=== PATIENT | female | born 1950 | race African-American/Black ===

== ENCOUNTER 2022-03-04 12:09 | Emergency (ER) | payer OTHER ==
[~2022-03-04] VITALS: Ht 167.6 cm; Wt 90.0 kg
[2022-03-04] MEDS ORDERED: DexAMETHasone SOD PHOS 10MG/1ML VIAL INJ IV ONE (14:00)
[2022-03-04] MEDS ORDERED: FAMOTIDINE (10MG/ML) 2ML VL IV ONE (14:00)
[2022-03-04] MEDS ORDERED: diphenhdrAMINE HCL 50 MG/1 ML VL IV ONE (14:00)
[2022-03-04 14:39] LABS: Basophils # (auto) 0 10 ^3/uL (0-0.2); Basophils % (auto) 0.2 % (0.0-2.0); Eosinophils # (auto) 0.4 10 ^3/uL (0-0.8); Eosinophils % (auto) 5.4 % (0.0-7.0); Hematocrit 47.8 % (36.0-46.0); Hemoglobin 16.1 g/dL (12.2-16.2); Lymphocytes # (auto) 1.5 10 ^3/uL (0.4-5.4); Mean Corpuscular Hemoglobin 31.8 pg (28.0-32.0); Mean Corpuscular Hgb Conc. 33.6 g/dL (32.0-36.0); Mean Corpuscular Volume 94.5 fL (80.0-100.0); Monocytes # (auto) 0.6 10 ^3/uL (0-1.3); Monocytes % (auto) 8.5 % (0.0-12.0); Neutrophils # (auto) 4.6 10 ^3/uL (1.6-8.6); Neutrophils % (auto) 64.9 % (37.0-80.0); Nucleated Red Blood Cells % 0.4 %; Red Blood Cells 5.06 10^6/uL (4.0-5.20); Red Cell Distribution Width 13.9 % (11.8-14.3)
[2022-03-04 15:21] LABS: BUN/Creatinine Ratio 25.8; Bilirubin, Total 0.3 mg/dL (0.2-1.0); Calcium 8.8 mg/dL (8.5-10.1); Potassium 3.7 mmol/L (3.5-5.1); Total Protein 6.9 g/dL (6.4-8.2)
[2022-03-04 20:44] VITALS: BP 98/66
== END 2022-03-04 20:42 | disposition home or self-care (01) ==
LOC: EDBD 12:09 → ER 12:12
DX: T78.3XXA Angioneurotic edema, initial encounter (principal); Z88.0 Allergy status to penicillin
CPT/HCPCS: 36415; 80053; 85025

== ENCOUNTER 2024-02-18 00:49 | Emergency (ER) | payer OTHER, MEDICAID ==
[~2024-02-18] VITALS: Ht 172.7 cm; Wt 113.4 kg
--- NOTE | 2024-02-18 01:28 | ED.PDOC ---
History of Present Illness HPI Comments 73 y/o F, with a Hx of AFIB, CHF, CVA w/left-sided deficits, HTN, morbid obesity, and seizures, is BIBA for c/o productive cough, today. Per EMS report, patient endorses on unprovoked onset of cough w/beige phlegm production for 1 week that has been progressively worsening since. On scene, EMS staff states on patient having clear lung sounds and all her vitals being stable and within normal limits, with exception of being found in AFIB. EMS informs on patient's family reporting on only giving the patient her Lasix and Keppra medication, with no additional prescription medication for her other comorbidities. Patient, at time of assessment, is a poor historian and is unable to provide further context regarding her medications she takes or symptoms, with exception of denying any chest pain, shortness of breath, hemoptysis, fever, chills, or other associated symptoms or modifiers at this time. Chief Complaint: Cough Time Seen by MD: 01:15 Primary Care Provider: UNKNOWN Reviewed Notes: Nurses Notes, Corporation Officer Notes, Medications, Allergies Allergies: Coded Allergies: Penicillins (Verified Allergy, Severe, 03/04/22) Shellfish Allergy (Verified Allergy, Unknown, 02/18/24) Information Source: Patient, Emergency Med Personnel Mode of Arrival: EMS Severity: Moderate Timing: Weeks Duration: Since onset Prehospital treatment: 12 Lead EKG, Custom Bookbinder Past Medical History PAST MEDICAL HISTORY: AFIB (w/Lasix use ), CHF, CVA (w/left-sided deficits ), HTN, Seizures (w/Keppra use, last seizure reported 2 years ago ) Past Medical History (Other): morbid obesity Surgical History: Denies all surgeries DISTANCE LEARNING TECHNICIAN History: Denies all DISTANCE LEARNING TECHNICIAN Hx, Unknown Family History Family History: Unknown Social History Smoker: Non-Smoker Alcohol: Denies ETOH Use Drugs: Denies Drug Use Lives In: Home, Assisted Care Constitutional: denies: chills, diaphoresis, fatigue, fever, malaise, sweats, weakness, others EENTM: denies: blurred vision, double vision, ear bleeding, ear discharge, ear drainage, ear pain, ear ringing, eye pain, eye redness, hearing loss, mouth pain, mouth swelling, nasal discharge, nose bleeding, nose congestion, nose pain, photophobia, tearing, throat pain, throat swelling, voice changes, others Respiratory: reports: cough; denies: hemoptysis, orthopnea, SOB at rest, shortn ess of breath, SOB with excertion, stridor, wheezing, others Cardiovascular: denies: chest pain, dizzy spells, diaphoresis, Dyspnea on exertion, edema, irregular heart beat, left arm pain, lightheadedness, palpitations, PND, syncope, others Gastrointestinal: denies: abdomen distended, abdominal pain, blood streaked bowels, constipated, diarrhea, dysphagia, difficulty swallowing, hematemesis, melena, nausea, poor appetite, poor fluid intake, rectal bleeding, rectal pain, vomiting, others Genitourinary: denies: abnormal vagina bleeding, burning, dyspareunia, dysuria, flank pain, frequency, hematuria, incontinence, pain, , vagina discharge, urgency, others Neurological: denies: dizziness, fainting, headache, left sided numbness, left sided weakness, numbness, paresthesia, pre-existing deficit, right sided numbness, right sided weakness, seizure, speech problems, tingling, tremors, weakness, others Musculoskeletal: denies: back pain, gout, joint pain, joint swelling, muscle pain, muscle stiffness, neck pain, others Integumetry: denies: bruises, change in color, change in hair/nails, dryness, laceration, lesions, lumps, rash, wounds, others Allergic/Immunocompromised: denies: Difficulty Healing, Frequent Infections, Hives, Itching, others Hematologic/Lymphatic: denies: anemia, blood clots, easy bleeding, easy bruising, swollen glands, others Endocrine: denies: excessive hunger, excessive sweating, excessive thirst, excessive urination, flushing, intolerance to cold, intolerance to heat, unexplained weight gain, unexplained weight loss, others Psychiatric: denies: anxiety, bipolar disorder, depression, hopeless, panic disorder, schizophrenia, sleepless, suicidal, others All Other Systems: Reviewed and Negative Physical Exam General Appearance: Moderate Distress, Obese HEENT: Normal ENT Inspection, Pharynx Normal, TMs Normal Neck: Full Range of Motion, Non-Tender, Normal, Normal Inspection Respiratory: Chest Non-Tender, Decreased Breath Sounds (diminished), No Accessory Muscle Use Cardiovascular: No Edema, No JVD, No Murmur, No Gallop, Normal Peripheral Pulses, Regular Rate/Rhythm Breast Exam: Deferred Gastrointestinal: No Organomegaly, Non Tender, No Pulsatile Mass, Normal Bowel Sounds, Soft Genitalia: Deferred Pelvic: Deferred Rectal: Deferred Extremities: No calf tenderness, Normal capillary refill, Normal inspection, Normal range of motion, Non-tender, No pedal edema Musculoskeletal : Apperance: Normal Neurologic: Alert, research assistant professor II-XII nml as Tested, Normal Affect, Normal Mood, Other (left-sided deficits) Cerebellar Function: Normal Reflexes: Normal Skin: Dry, Normal Color, Warm Lymphatic: No Adenopathy Was a procedure done? Was a procedure done?: No EKG EKG : Pulse Rate (adult): 138 [place]lick: Normal Cardiac Rhythm: Afib (RVR) Block: None Hypertrophy: None ST: Normal Differential Dx Considerations may include: PNA, pleural effusions, Covdi19, bronchitis, URI X-Ray, Labs, Meds, VS Vital Signs Date Time Temp Pulse Resp B/P (MAP) Pulse Ox O2 Delivery O2 Flow Rate FiO2 02/18/24 02:34 20 97 Room Air* 0 21 02/18/24 01:54 144 19 Room Air* 0 21 02/18/24 01:54 97.9 144 19 145/105 (118) 97.9 02/18/24 01:28 138 02/18/24 01:06 138 02/18/24 01:04 98.9 120 16 118/91 (100) 100 Lab Test 02/18/24 03:47 02/18/24 03:38 02/18/24 02:33 02/18/24 01:48 Range/Units Prothrombin Time Pending Prothrombin Time INR Pending Activated Partial Thromboplast Time Pending Sodium Level Pending Potassium Level Pending Chloride Level Pending Carbon Dioxide Level Pending Anion Gap Pending Blood Urea Nitrogen Pending Creatinine Pending Glomerular Filtration Rate Calc Pending BUN/Creatinine Ratio Pending Serum Glucose Pending Calcium Level Pending Total Bilirubin Pending Aspartate Amino Transferase (AST) Pending Alanine Aminotransferase (ALT) Pending Alkaline Phosphatase Pending Troponin I High Sensitivity Pending 28 36 *H </=34 ng/L Total Protein Pending Albumin Pending Influenza Type A Antigen Negative Negative Influenza Type B Antigen Negative Negative SARS-CoV-2 Antigen (Rapid) Negative NEGATIVE White Blood Count 8.7 4.4-10.8 10^3/uL Red Blood Count 4.03 4.0-5.20 10^6/uL Hemoglobin 12.2 12.2-16.2 g/dL Hematocrit 37.5 36.0-46.0 % Mean Corpuscular Volume 93.1 80.0-100.0 fL Mean Corpuscular Hemoglobin 30.2 28.0-32.0 pg Mean Corpuscular Hemoglobin Concent 32.4 32.0-36.0 g/dL Red Cell Distribution Width 14.0 11.8-14.3 % Platelet Count 168 140-450 10^3/uL Mean Platelet Volume 10.0 6.9-10.8 fL Neutrophils (%) (Auto) 71.9 37.0-80.0 % Lymphocytes (%) (Auto) 18.5 10.0-50.0 % Monocytes (%) (Auto) 2.6 0.0-12.0 % Eosinophils (%) (Auto) 5.7 0.0-7.0 % Basophils (%) (Auto) 1.3 0.0-2.0 % Neutrophils # (Auto) 6.2 1.6-8.6 10 ^3/uL Lymphocytes # (Auto) 1.6 0.4-5.4 10 ^3/uL Monocytes # (Auto) 0.2 0-1.3 10 ^3/uL Eosinophils # (Auto) 0.5 0-0.8 10 ^3/uL Basophils # (Auto) 0.1 0-0.2 10 ^3/uL Nucleated Red Blood Cells 0.3 % B-Type Natriuretic Peptide 90.82 0-100 pg/mL Current Medications Medications (Trade) Dose Ordered Sig/Mahad Route Start Time Stop Time Status Last Admin Diltiazem HCl (Cardizem Injection) 10 mg ONCE ONCE IV 02/18/24 01:30 02/18/24 01:31 DC 02/18/24 01:30 Levofloxacin/ Dextrose 100 ml @ 100 mls/hr ONCE ONCE IV 02/18/24 01:30 02/18/24 02:29 DC 02/18/24 01:30 Levalbuterol HCl (Xopenex Medneb) 0.625 mg ONCE ONCE NEB 02/18/24 02:30 02/18/24 02:31 DC 02/18/24 02:34 [facility] [id number] [place] [address] Ph: [phone] DIAGNOSTIC IMAGING Diagnostic Imaging Report : [id number] Signed PATIENT: LORENA ECKERT ACCT: [id number] UNIT: [id number] : 1950 LOC: ER ROOM / BED: / AGE / SEX: 73 / F ADM STATUS: REG ER SERVICE 9 ORDERING PHYSICIAN: KAYLIE MOORE MD PROCEDURE(s): CXRP - CHEST PORTABLE REASON: cough ORDER NUMBER(s): [id number], ACCESSION NUMBER(s): [id number] Examination: CXRP Clinical Indication:cough DIREAS;Reason for Exam: ;P DITRANS;How is patient transported? Comparison: None. Technique: Frontal radiograph of the chest was obtained. Findings: Patient is in slight rotation. Mild cardiomegaly, with central pulmonary venous congestion in both lungs. Inhomogeneous radiopacities in the right lower lung suggestive of patchy conso lidation. No pleural effusion on either side in current study. There is no pneumothorax. Aortic knob calcification noted. No acute osseous abnormality is seen. Impression: 1. Mild cardiomegaly, with central pulmonary venous congestion in both lungs. 2. Patchy consolidation in right lower lung. Electronically Signed 02/18/2024 02:59 Julien Guardado ATED BY: GEO BUTTERFIELD MD DICTATED DATE/TIME: 02/18/24258 SIGNED BY: GEO BUTTERFIELD MD SIGNED DATE/TIME: 02/18/24258 CC: Troponin is pending. EKG reveals atrial fibrillation. Chest x-ray shows cardiomegaly with pulmonary venous congestion in right lower lobe consolidation. COVID and influenza a and B are negative. However RSV is pending The rest of her labs are pending. The patient was given Lasix for pulmonary congestion. She was given Levaquin for pneumonia. She was given diltiazem for atrial fibrillation. The patient will be admitted to the hospitalist for further evaluation and care. Time of 1ST Reevaluation: 01:45 Reevaluation 1ST: Unchanged Patient Education/Counseling: Diagnosis, Treatment Family Education/Counseling: No Family Present Departure 1 Departure Time of Disposition: 04:33 Impression: Primary Impression: Cardiomegaly Additional Impressions: Pulmonary congestion Pneumonia Qualified Codes: J18.9 - Pneumonia, unspecified organism Atrial fibrillation Qualified Codes: I48.91 - Unspecified atrial fibrillation Disposition: ADMITTED INPATIENT Admit to: Tele Condition: Guarded Critical Care Note Critical Care Time?: Yes (35 min-critical care time only) Stability Stability form required: No Heart Score Heart Score: Heart Score Response (Comments) Value History Slightly Suspicious 0 EKG Repolarization Disturb 1 Age >65 2 Risk Factors >3 or Hx ASHD 2 Troponin N/A 0 Total 5 I personally scribed for KAYLIE MOORE MD ([email or web address]) on 02/18/24 at 01:28. Electronically submitted by Abhinav Anthony ([email or web address]). I personally scribed for KAYLIE MOORE MD ([email or web address]) on 02/18/24 at 01:29. Electronically submitted by Abhinav Anthony ([email or web address]). KAYLIE MOORE MD Feb 18, 2024 01:28
[2024-02-18] MEDS: ACETAMINOPHEN/CODEINE#3 (300/30mg) TAB PO ONE (01:30)
[2024-02-18] MEDS: dilTIAZem 25 MG/5 ML VIAL IV ONE ×3 (01:30→09:30)
[2024-02-18] MEDS: levoFLOXacin 500MG 100 ML IV ONE (01:30)
[2024-02-18 01:54] VITALS: PULSE 144; RESP 19
[2024-02-18] MEDS: LEVALBUTEROL HCL 1.25 MG/3 ML NEB NEB ONE (02:34)
[2024-02-18 03:00] LABS: Basophils # (auto) 0.1 10 ^3/uL (0-0.2); Basophils % (auto) 1.3 % (0.0-2.0); Eosinophils # (auto) 0.5 10 ^3/uL (0-0.8); Eosinophils % (auto) 5.7 % (0.0-7.0); Hematocrit 37.5 % (36.0-46.0); Hemoglobin 12.2 g/dL (12.2-16.2); Lymphocytes # (auto) 1.6 10 ^3/uL (0.4-5.4); Lymphocytes % (auto) 18.5 % (10.0-50.0); Mean Corpuscular Hemoglobin 30.2 pg (28.0-32.0); Mean Corpuscular Hgb Conc. 32.4 g/dL (32.0-36.0); Mean Corpuscular Volume 93.1 fL (80.0-100.0); Monocytes # (auto) 0.2 10 ^3/uL (0-1.3); Monocytes % (auto) 2.6 % (0.0-12.0); Neutrophils # (auto) 6.2 10 ^3/uL (1.6-8.6); Neutrophils % (auto) 71.9 % (37.0-80.0); Nucleated Red Blood Cells % 0.3 %; Platelet Count (auto) 168 10^3/uL (140-450); Red Blood Cells 4.03 10^6/uL (4.0-5.20); White Blood Cell 8.7 10^3/uL (4.4-10.8)
--- NOTE | 2024-02-18 03:00 | DVH ---
Examination: CXRP Clinical Indication:cough DIREAS;Reason for Exam: ;P DITRANS;How is patient transported? Comparison: None. Technique: Frontal radiograph of the chest was obtained. Findings: Patient is in slight rotation. Mild cardiomegaly, with central pulmonary venous congestion in both lungs. Inhomogeneous radiopacities in the right lower lung suggestive of patchy consolidation. No pleural effusion on either side in current study. There is no pneumothorax. Aortic knob calcification noted. No acute osseous abnormality is seen. Impression: 1. Mild cardiomegaly, with central pulmonary venous congestion in both lungs. 2. Patchy consolidation in right lower lung. Electronically Signed 02/18/2024 02:59 Julien Guardado
[2024-02-18 04:19] LABS: COVID19 ANTIGEN SOFIA FIA NEGATIVE (NEGATIVE); Rapid Influenza A Negative (Negative); Rapid Influenza B Negative (Negative)
[2024-02-18 04:28] LABS: Alanine Aminotransferase 15 U/L (7-40); Albumin 3.9 g/dL (3.2-4.8); Alkaline Phosphatase 137 U/L (46-116); Anion Gap 10 (5-15); Aspartate Aminotransferase 31 U/L (13-40); BUN/Creatinine Ratio 15.5 (10.0-20.0); Bilirubin, Total 0.6 mg/dL (0.2-1.0); Blood Urea Nitrogen 11 mg/dL (9-23); Calcium 9.5 mg/dL (8.7-10.4); Carbon Dioxide 24 mmol/L (20-31); Chloride 107 mmol/L (98-107); Glucose 111 mg/dL (74-106); Potassium 4.4 mmol/L (3.5-5.1); Sodium 141 mmol/L (136-145); Total Protein 6.8 g/dL (5.7-8.2)
[2024-02-18 04:48] LABS: INR 1.03 (0.9-1.15); Partial Thromboplastin Time 26.3 SEC (24.5-34.5); Prothrombin Time 10.9 sec (9.3-11.8)
[2024-02-18] MEDS ORDERED: LEVALBUTEROL HCL 1.25 MG/3 ML NEB NEB SCH (06:00)
--- NOTE | 2024-02-18 06:21 | ECG ---
[facility] Test Date: 2024-02-18 Test Time: 01:06:43 Pat Name: LORENA ECKERT Department: ED Room: Gender: F Vp & General Counsel: SANJAY : 1950 Requested By: EMERGENCY EMERGENCY Order Number: [id number] Reading MD: Ge Lepe Measurements Intervals [place] Rate: 138 P: 0 ND: 0 QRS: 42 QRSD: 97 T: 29 QT: 319 QTc: 484 Interpretive Statements Atrial fibrillation Paired ventricular premature complexes Artifact in lead(s) aVL,aVF,V1,V2,V3,V4,V5,V6 and baseline wander in lead(s) V2 Electronically Signed On 02-18-2024 8:28:54 PST by Ge Lepe Please click the below link to view image of tracing.
--- NOTE | 2024-02-18 06:42 | ED.PDOC ---
Departure 1 Departure Time of Disposition: 06:41 ([facility] Authorization for transfer [id number] with Pneumonia c/b afib with rvr. Patient is stable for als transfer.) Impression: Primary Impression: Cardiomegaly Additional Impressions: Pulmonary congestion Atrial fibrillation Qualified Codes: I48.91 - Unspecified atrial fibrillation Pneumonia Qualified Codes: J18.9 - Pneumonia, unspecified organism Disposition: 02 SHORT TERM HOSPITAL Admit to: Tele Condition: Guarded LIANA OROZCO MD Feb 18, 2024 06:42
[2024-02-18] MEDS: CARVEDILOL 3.125 MG TAB PO ONE (06:56)
[2024-02-18] MEDS: AZITHROMYCIN 250 MG TAB PO ONE (06:58)
[2024-02-18 08:37] VITALS: PULSE 131; RESP 12; O2SAT 97
[2024-02-18 10:05] VITALS: BP 157/92; PULSE 89; RESP 14; TEMP 97.1; O2SAT 95
== END 2024-02-18 10:12 | disposition short-term general hospital (02) ==
LOC: EDBD 00:49 → ER 00:49
DX: J18.9 Pneumonia, unspecified organism (principal); I11.0 Hypertensive heart disease with heart failure; R09.89 Other specified symptoms and signs involving the circulatory and respiratory systems; I48.91 Unspecified atrial fibrillation; Z88.0 Allergy status to penicillin
CPT/HCPCS: 36415; 71045; 80053; 83880; 84484; 85025; 85610; 85730; 87426; 87804; 93005; 94640; 96365; 96375; 96376; 99291; J1956

== ENCOUNTER 2024-03-31 03:07 | Emergency (ER) | payer OTHER, MEDICAID ==
[~2024-03-31] VITALS: Ht 167.6 cm; Wt 130.0 kg
--- NOTE | 2024-03-31 03:37 | ED.PDOC ---
History of Present Illness HPI Comments 73 y/o F, Hx of AFIB, CHF, CVA, HTN, and seizures, is BIBA for c/o ALOC, today. Per EMS report, patient's family called, due to patient acting unusual from her baseline since 1999, last night. Her altered stated was commented to have been characterized by the patient being confused and rambling between different un- related topics. Prior, she patient was reported to have had suffered a recent "stroke" that resulted in slow speech deficits on 03/25/24. On scene, EMS noted patient being A&Ox1 to name, warm to touch, with a temperature of 99.8F, peripheral edema, and in AFIB at a rate within the 120-140 range. All other remaining vitals were stated to have been within normal limits. At time of assessment, patient has no further additional relevant or pertinent Hx or associated symptoms or modifiers at this time. Further Hx cannot be obtained at time of assessment, due to patient's altered state and absence of family/caretakers. Time Seen by MD: 03:20 Primary Care Provider: UNKNOWN Reviewed Notes: Nurses Notes, Mechanical Press Operator Notes, Medications, Allergies Allergies: Coded Allergies: Penicillins (Verified Allergy, Severe, 03/04/22) Shellfish Allergy (Verified Allergy, Unknown, 02/18/24) Information Source: Emergency Med Personnel Mode of Arrival: EMS Severity: Moderate Timing: Hours Duration: Since onset Prehospital treatment: 12 Lead EKG, Accucheck, Corporate Compliance Officer Past Medical History PAST MEDICAL HISTORY: AFIB, CHF, CVA, HTN, Seizures Surgical History: Denies all surgeries PHARMACEUTICAL DEVELOPMENT TECHNICIAN History: Denies all PHARMACEUTICAL DEVELOPMENT TECHNICIAN Hx, Unknown Family History Family History: Unknown Social History Smoker: Non-Smoker Alcohol: Denies ETOH Use Drugs: Denies Drug Use Lives In: Home, Assisted Care Neurological: reports: others (ALOC) All Other Systems: Reviewed and Negative (negative unless otherwise stated above or in HPI) Physical Exam General Appearance: Normal, Severe Distress, Other (non-verbal ) HEENT: Normal ENT Inspection, Pharynx Normal, TMs Normal Neck: Full Range of Motion, Non-Tender, Normal, Normal Inspection Respiratory: Chest Non-Tender, Lungs Clear, No Accessory Muscle Use, No Respiratory Distress, Normal Breath Sounds Cardiovascular: No Edema, No JVD, No Murmur, No Gallop, Normal Peripheral Pulses, Regular Rate/Rhythm Breast Exam: Deferred Gastrointestinal: No Organomegaly, Non Tender, No Pulsatile Mass, Normal Bowel Sounds, Soft Genitalia: Deferred Pelvic: Deferred Rectal: Deferred Extremities: No calf tenderness, Normal capillary refill, Normal inspection, Normal range of motion, Non-tender, No pedal edema Musculoskeletal : Apperance: Normal Neurologic: Alert, measurement technician II-XII nml as Tested, No Motor Deficits, Normal Affect, Normal Mood, No Sensory Deficits Cerebellar Function: Normal Reflexes: Normal Skin: Dry, Normal Color, Warm Lymphatic: No Adenopathy Was a procedure done? Was a procedure done?: No EKG EKG : Pulse Rate (adult): 115 [place]: Normal Cardiac Rhythm: Afib Block: None Hypertrophy: None ST: Normal Differential Dx Considerations may include: Electrolyte imbalance, encephalopathy, idiopathic, dementia, CVA, TIA X-Ray, Labs, Meds, VS Vital Signs Date Time Temp Pulse Resp B/P (MAP) Pulse Ox O2 Delivery O2 Flow Rate FiO2 03/31/24 03:37 115 03/31/24 03:21 99.8 120 24 121/99 (106) 99 03/31/24 03:10 [address] [place] [address] Ph: [phone] DIAGNOSTIC IMAGING Diagnostic Imaging Report : [id number] Signed PATIENT: LORENA ECKERT ACCT: [id number] UNIT: [id number] : 1950 LOC: ER ROOM / BED: / AGE / SEX: 73 / F ADM STATUS: REG ER SERVICE 0322 ORDERING PHYSICIAN: KAYLIE MOORE MD PROCEDURE(s): CXRP - CHEST PORTABLE REASON: aloc ORDER NUMBER(s): [id number], ACCESSION NUMBER(s): [id number] CHEST RADIOGRAPH Indication: aloc Technique: Single frontal view of the chest was obtained COMPARISON: XY CHEST PORTABLE on DOS: 02/18/24 FINDINGS: Lines and Tubes: None Lungs: Congestion Pleura: No effusion. No pneumothorax. Cardiomediastinal contours: Cardiomegaly Bones: Unremarkable IMPRESSION: Pulmonary vascular congestion versus viral pneumonitis. ATED BY: JANI VILLALBA MD DICTATED DATE/TIME: 03/31/24514 SIGNED BY: JANI VILLALBA MD SIGNED DATE/TIME: 03/31/24514 CC: Labs are pending. [address] [place] [address] Ph: [phone] DIAGNOSTIC IMAGING Diagnostic Imaging Report : [id number] Signed PATIENT: LORENA ECKERT ACCT: [id number] UNIT: [id number] : 1950 LOC: ER ROOM / BED: / AGE / SEX: 73 / F ADM STATUS: REG ER SERVICE 1 ORDERING PHYSICIAN: KAYLIE MOORE MD PROCEDURE(s): HWOCT - HEAD WITHOUT CONTRAST REASON: aloc ORDER NUMBER(s): [id number], ACCESSION NUMBER(s): [id number] EXAM: CT HEAD WITHOUT CONTRAST INDICATION: aloc TECHNIQUE: CT of the head without intravenous contrast. Coronal and sagittal reformatted images are submitted. Radiation Dose : 1. Head: CT Dose: CTDI volume is 69.82 mGy. Dose-length product is 1631.56 mGy*cm The dose indicators for CT are the volume Computed Tomography (CT) Dose Index (CTDIvol) and the Dose Length Product (DLP), and are measured in units of mGy and mGy-cm, respectively. These indicators are not patient dose, but values generated from the CT scanner acquisition factors. The report includes radiation exposure data for exposures received during this examination. All CT scans at this medical facility are performed using dose modulation techniques as appropriate to a performed exam including the following: Automated exposure control was utilized; adjustment of the MA and/or KV according to patient size; and use of iterative reconstruction technique. COMPARISON: None FINDINGS: There is no evidence of acute intracranial hemorrhage, extra-axial collection, mass effect, midline shift, herniation or hydrocephalus. There is encephalomalacia from prior right MCA infarct with ex vacuo dilatation of the right lateral ventricle. There is ill-defined hypodensity in the left frontal lobe suspicious for acute or subacute infarct. Moderate white matter disease. No hydrocephalus. Mild cortical volume loss. The visualized paranasal sinuses and mastoid air cells are clear. No depressed calvarial fracture. The surrounding soft tissues are unremarkable. IMPRESSION: 1. Acute versus subacute infarcts in the left frontal lobe. 2. No acute intracranial hemorrhage. 3. Old right MCA infarct. Sequelae of chronic microangiopathy. ATED BY: VIVIANA PEREIRA MD DICTATED DATE/TIME: 03/31/24523 SIGNED BY: VIVIANA PEREIRA MD SIGNED DATE/TIME: 03/31/24523 CC: I spoke to Dr. Giordano to [place] and he stated that the patient had a MRI showing a left frontal infarct on March 28, 2024. He also said that MRI shows a right infarct as well. Labs are pending Time of 1ST Reevaluation: 03:50 Reevaluation 1ST: Unchanged Patient Education/Counseling: Other (patient is altered ) Family Education/Counseling: No Family Present Departure 1 Departure Time of Disposition: 06:01 Impression: Primary Impression: Altered mental status Qualified Codes: R41.82 - Altered mental status, unspecified Additional Impressions: Metabolic encephalopathy Cerebral infarct Qualified Codes: I63.9 - Cerebral infarction, unspecified Disposition: 30 STILL A PATIENT Admit to: ICU Condition: Critical Comments The patient was endorsed to Dr. Rice Critical Care Note Critical Care Time?: Yes (45 min-critical care time only) Stability Stability form required: No Heart Score Heart Score: Heart Score Response (Comments) Value History N/A 0 EKG Repolarization Disturb 1 Age >65 2 Risk Factors >3 or Hx ASHD 2 Troponin N/A 0 Total 5 I personally scribed for KAYLIE MOORE MD ([email or web address]) on 03/31/24 at 03:37. Electronically submitted by Abhinav Anthony ([email or web address]). I personally scribed for KAYLIE MOORE MD ([email or web address]) on 03/31/24 at 05:24. Electronically submitted by Abhinav Anthony ([email or web address]). KAYLIE MOORE MD Mar 31, 2024 03:37
--- NOTE | 2024-03-31 05:20 | DVH ---
CHEST RADIOGRAPH Indication: aloc Technique: Single frontal view of the chest was obtained COMPARISON: XY CHEST PORTABLE on DOS: 02/18/24 FINDINGS: Lines and Tubes: None Lungs: Congestion Pleura: No effusion. No pneumothorax. Cardiomediastinal contours: Cardiomegaly Bones: Unremarkable IMPRESSION: Pulmonary vascular congestion versus viral pneumonitis.
--- NOTE | 2024-03-31 05:26 | DVH ---
EXAM: CT HEAD WITHOUT CONTRAST INDICATION: aloc TECHNIQUE: CT of the head without intravenous contrast. Coronal and sagittal reformatted images are submitted. Radiation Dose : 1. Head: CT Dose: CTDI volume is 69.82 mGy. Dose-length product is 1631.56 mGy*cm The dose indicators for CT are the volume Computed Tomography (CT) Dose Index (CTDIvol) and the Dose Length Product (DLP), and are measured in units of mGy and mGy-cm, respectively. These indicators are not patient dose, but values generated from the CT scanner acquisition factors. The report includes radiation exposure data for exposures received during this examination. All CT scans at this medical facility are performed using dose modulation techniques as appropriate to a performed exam including the following: Automated exposure control was utilized; adjustment of the MA and/or KV according to patient size; and use of iterative reconstruction technique. COMPARISON: None FINDINGS: There is no evidence of acute intracranial hemorrhage, extra-axial collection, mass effect, midline s hift, herniation or hydrocephalus. There is encephalomalacia from prior right MCA infarct with ex vacuo dilatation of the right lateral ventricle. There is ill-defined hypodensity in the left frontal lobe suspicious for acute or subacute infarct. Moderate white matter disease. No hydrocephalus. Mild cortical volume loss. The visualized paranasal sinuses and mastoid air cells are clear. No depressed calvarial fracture. The surrounding soft tissues are unremarkable. IMPRESSION: 1. Acute versus subacute infarcts in the left frontal lobe. 2. No acute intracranial hemorrhage. 3. Old right MCA infarct. Sequelae of chronic microangiopathy.
--- NOTE | 2024-03-31 06:37 | ECG ---
[facility] Test Date: 2024-03-31 Test Time: 03:10:20 Pat Name: LORENA ECKERT Department: ED Room: Gender: F Bobbin Cleaner: SANJAY : 1950 Requested By: KAYLIE MOORE Order Number: [id number] Reading MD: Ge Lepe Measurements Intervals [place] Rate: 115 P: 0 MN: 0 QRS: 17 QRSD: 99 T: 41 QT: 360 QTc: 498 Interpretive Statements Atrial fibrillation Electronically Signed On 03-31-2024 18:28:38 PST by Ge Lepe Please click the below link to view image of tracing.
[2024-03-31 08:50] LABS: Basophils # (auto) 0 10 ^3/uL (0-0.2); Basophils % (auto) 0.1 % (0.0-2.0); Eosinophils # (auto) 0.2 10 ^3/uL (0-0.8); Eosinophils % (auto) 2.1 % (0.0-7.0); Hematocrit 53.3 % (36.0-46.0); Hemoglobin 17.5 g/dL (12.2-16.2); Lymphocytes # (auto) 0.9 10 ^3/uL (0.4-5.4); Lymphocytes % (auto) 10.3 % (10.0-50.0); Mean Corpuscular Hemoglobin 30.9 pg (28.0-32.0); Mean Corpuscular Hgb Conc. 32.8 g/dL (32.0-36.0); Mean Corpuscular Volume 94.1 fL (80.0-100.0); Monocytes # (auto) 1.3 10 ^3/uL (0-1.3); Monocytes % (auto) 13.7 % (0.0-12.0); Neutrophils # (auto) 6.8 10 ^3/uL (1.6-8.6); Neutrophils % (auto) 73.8 % (37.0-80.0); Nucleated Red Blood Cells % 0.1 %; Platelet Count (auto) 199 10^3/uL (140-450); Red Blood Cells 5.66 10^6/uL (4.0-5.20); Red Cell Distribution Width 14.4 % (11.8-14.3); White Blood Cell 9.1 10^3/uL (4.4-10.8)
[2024-03-31 11:51] LABS: Alanine Aminotransferase 17 U/L (7-40); Anion Gap 10 (5-15); BUN/Creatinine Ratio 9.5 (10.0-20.0); Calcium 9.1 mg/dL (8.7-10.4); Carbon Dioxide 25 mmol/L (20-31); Chloride 103 mmol/L (98-107); Potassium 4.3 mmol/L (3.5-5.1); Sodium 138 mmol/L (136-145)
[2024-03-31 11:52] LABS: Albumin 3.9 g/dL (3.2-4.8); Bilirubin, Total 0.7 mg/dL (0.2-1.0)
[2024-03-31 11:58] LABS: Alkaline Phosphatase 140 U/L (46-116); Aspartate Aminotransferase 41 U/L (13-40); Blood Urea Nitrogen 8 mg/dL (9-23); Glucose 121 mg/dL (74-106); INR 1.08 (0.9-1.15); Partial Thromboplastin Time 27.5 SEC (24.5-34.5); Prothrombin Time 11.4 sec (9.3-11.8)
[2024-03-31] MEDS: ASPirin 325 MG TAB PO ONE (14:15)
[2024-03-31 22:27] VITALS: PULSE 95; RESP 16; O2SAT 95
[2024-03-31] MEDS: hydrALAZINE HCL 20 MG/ML VL IV ONE (22:46)
[2024-03-31] MEDS: METOPROLOL TARTRATE 1MG/1ML-5ML VIAL IV ONE (23:22)
[2024-04-01 00:04] LABS: Urine Bacteria MANY /hpf (None Seen); Urine Blood 2+ /uL (Negative); Urine Clarity Turbid (Clear); Urine Color Yellow (Yellow); Urine Mucus FEW (None Seen); Urine Protein, UAD 1+ (Negative); Urine Specific Gravity 1.014 (1.001-1.035); Urine Squamous Epithelial Cell FEW /hpf (<5); Urine Urobilinogen Normal (Negative); Urine WBC 77 /hpf (0 - 5); Urine pH 6.5 (5.0-9.0)
[2024-04-01] MEDS ORDERED: METOPROLOL TARTRATE 1MG/1ML-5ML VIAL IV ONE (00:30)
[2024-04-01] MEDS: SODIUM CHLORIDE 0.9% 1,000 ML IV ONE (00:30)
[2024-04-01 01:58] VITALS: BP 108/57; PULSE 135; RESP 24; TEMP 97.8; O2SAT 99
== END 2024-04-01 03:22 | disposition short-term general hospital (02) ==
LOC: EDBD 03:07 → ER 03:07
DX: R41.82 Altered mental status, unspecified (principal); G93.41 Metabolic encephalopathy; I48.91 Unspecified atrial fibrillation; I63.9 Cerebral infarction, unspecified; I11.0 Hypertensive heart disease with heart failure; I50.9 Heart failure, unspecified; Z86.73 Personal history of transient ischemic attack (TIA), and cerebral infarction without residual deficits; Z88.0 Allergy status to penicillin
CPT/HCPCS: 36415; 70450; 71045; 80053; 81001; 82962; 83880; 84484; 85025; 85610; 85730; 93005; 96361; 96374; 96375; 99291; J0360; J7030

== ENCOUNTER 2024-10-31 06:31 | Inpatient (IN) | payer MEDICAID, OTHER ==
[2024-10-31] VITALS (10 sets, daily range): BP systolic 111–123; BP diastolic 87–96; PULSE 59–138; RESP 18–31; TEMP 97.9–98.1; O2SAT 97–100
[~2024-10-31] VITALS: Ht 157.5 cm; Wt 120.2 kg
--- NOTE | 2024-10-31 06:45 | ECG ---
[facility] Test Date: 2024-10-31 Test Time: 06:34:13 Pat Name: LORENA ECKERT Department: [facility] ED Patient ID: [facility]-[id number] Room: 0246T Gender: F Locomotive Crane Operator Helper: IVAN : 1950 Requested By: LÓPEZ ROCHE Order Number: [id number] Reading MD: Ge Lepe Measurements Intervals [place] Rate: 144 P: 0 NE: 0 QRS: 22 QRSD: 101 T: 73 QT: 278 QTc: 431 Interpretive Statements Atrial fibrillation with rapid V-rate Repolarization abnormality, prob rate related Electronically Signed On 11-02-2024 18:18:58 PDT by Ge Lepe Please click the below link to view image of tracing.
--- NOTE | 2024-10-31 07:23 | ED.PDOC ---
SOB-HPI HPI Comments This is a 74 year-old female, with a PMHX of X3 CVA, Seizures, and CHF, who presents to the ED via EMS with a chief complaint of SOB with associated Nausea for X2 days. Per EMS, patients family called due to patients difficulty breathing. Upon evaluation, patients left side is affected by X3 strokes. EKG reads 144 AFIB. Patient has no further complaints at this time and otherwise denies cough, chest pain, V/D, headache, fever, or chills. Chief Complaint: Shortness of Breath Time Seen by MD: 07:20 Primary Care Provider: UNKNOWN Reviewed notes: Nurses Notes, [place] Measurer Notes, Medications, Allergies Information Source: Patient, Emergency Med Personnel Mode of Arrival: EMS Severity: Moderate Timing: Days Duration: Since onset History of: CHF Prehospital treatment: 12 Lead EKG Radiation: No Radiation Past Medical History PAST MEDICAL HISTORY: AFIB, CHF, CVA, HTN, Seizures Surgical History: Denies all surgeries [employer] WORK[employer] History: Denies all [employer] WORK[employer] Hx, Unknown Family History Family History: Unknown Social History Smoker: Non-Smoker Alcohol: Denies ETOH Use Drugs: Denies Drug Use Lives In: Home, Assisted Care Constitutional: denies: chills, diaphoresis, fatigue, fever, malaise, sweats, weakness, others EENTM: denies: blurred vision, double vision, ear bleeding, ear discharge, ear drainage, ear pain, ear ringing, eye pain, eye redness, hearing loss, mouth pain, mouth swelling, nasal discharge, nose bleeding, nose congestion, nose pain, photophobia, tearing, throat pain, throat swelling, voice changes, others Respiratory: reports: SOB at rest, shortness of breath, SOB with excertion; denies: cough, hemoptysis, orthopnea, stridor, wheezing, others Cardiovascular: denies: chest pain, dizzy spells, diaphoresis, Dyspnea on exertion, edema, irregular heart beat, left arm pain, lightheadedness, palpitations, PND, syncope, others Gastrointestinal: reports: nausea; denies: abdomen distended, abdominal pain, blood streaked bowels, constipated, diarrhea, dysphagia, difficulty swallowing, hematemesis, melena, poor appetite, poor fluid intake, rectal bleeding, rectal pain, vomiting, others Genitourinary: denies: abnormal vagina bleeding, burning, dyspareunia, dysuria, flank pain, frequency, hematuria, incontinence, pain, , vagina discharge, urgency, others Neurological: denies: dizziness, fainting, headache, left sided numbness, left sided weakness, numbness, paresthesia, pre-existing deficit, right sided num bness, right sided weakness, seizure, speech problems, tingling, tremors, weakness, others Musculoskeletal: denies: back pain, gout, joint pain, joint swelling, muscle pain, muscle stiffness, neck pain, others Integumetry: denies: bruises, change in color, change in hair/nails, dryness, laceration, lesions, lumps, rash, wounds, others Allergic/Immunocompromised: denies: Difficulty Healing, Frequent Infections, Hives, Itching, others Hematologic/Lymphatic: denies: anemia, blood clots, easy bleeding, easy bruising, swollen glands, others Endocrine: denies: excessive hunger, excessive sweating, excessive thirst, excessive urination, flushing, intolerance to cold, intolerance to heat, unexplained weight gain, unexplained weight loss, others Psychiatric: denies: anxiety, bipolar disorder, depression, hopeless, panic disorder, schizophrenia, sleepless, suicidal, others All Other Systems: Reviewed and Negative Physical Exam General Appearance: Moderate Distress HEENT: Normal ENT Inspection, Pharynx Normal, TMs Normal Neck: Full Range of Motion, Non-Tender, Normal, Normal Inspection Respiratory: Chest Non-Tender, Lungs Clear, No Accessory Muscle Use, No Respiratory Distress, Normal Breath Sounds Cardiovascular: Irregular, Tachycardia Breast Exam: Deferred Gastrointestinal: No Organomegaly, Non Tender, No Pulsatile Mass, Normal Bowel Sounds, Soft Genitalia: Deferred Pelvic: Deferred Rectal: Deferred Extremities: No calf tenderness Musculoskeletal : Apperance: Normal Neurologic: Alert Cerebellar Function: NOT DONE Reflexes: NOT DONE Skin: Normal Color Peripheral Pulses: 3+ Radial (R), 3+ Radial (L) Lymphatic: No Adenopathy EKG EKG : Pulse Rate (adult): 144 [place]: Normal Cardiac Rhythm: Afib Block: None Hypertrophy: None ST: Normal Was a procedure done? Was a procedure done?: No Differential Dx Differential Diagnosis: Anxiety, Asthma, CHF, COPD, Panic Attack, Sinusitis, Pharyngitis X-Ray, Labs, Meds, VS Vital Signs Date Time Temp Pulse Resp B/P (MAP) Pulse Ox O2 Delivery O2 Flow Rate FiO2 10/31/24 08:00 114 10/31/24 07:34 144 10/31/24 07:30 98.9 138 31 123/89 (100) 97 98.9 10/31/24 07:30 138 31 97 Room Air* 0 21 10/31/24 06:36 98.7 136 22 99/63 97 98.7 10/31/24 06:34 144 Lab Test 10/31/24 08:05 Range/Units White Blood Count 12.4 H 4.4-10.8 10^3/uL Red Blood Count 5.61 H 4.0-5.20 10^6/uL Hemoglobin 17.4 H 12.2-16.2 g/dL Hematocrit 52.9 H 36.0-46.0 % Mean Corpuscular Volume 94.4 80.0-100.0 fL Mean Corpuscular Hemoglobin 31.1 28.0-32.0 pg Mean Corpuscular Hemoglobin Concent 32.9 32.0-36.0 g/dL Red Cell Distribution Width 14.6 H 11.8-14.3 % Platelet Count 268 140-450 10^3/uL Mean Platelet Volume 10.2 6.9-10.8 fL Neutrophils (%) (Auto) 82.0 H 37.0-80.0 % Lymphocytes (%) (Auto) 12.0 10.0-50.0 % Monocytes (%) (Auto) 5.3 0.0-12.0 % Eosinophils (%) (Auto) 0.5 0.0-7.0 % Basophils (%) (Auto) 0.2 0.0-2.0 % Neutrophils # (Auto) 10.2 H 1.6-8.6 10 ^3/uL Lymphocytes # (Auto) 1.5 0.4-5.4 10 ^3/uL Monocytes # (Auto) 0.7 0-1.3 10 ^3/uL Eosinophils # (Auto) 0.1 0-0.8 10 ^3/uL Basophils # (Auto) 0 0-0.2 10 ^3/uL Nucleated Red Blood Cells 0.1 % Sodium Level 143 136-145 mmol/L Potassium Level 4.6 3.5-5.1 mmol/L Chloride Level 109 H 98-107 mmol/L Carbon Dioxide Level 18 L 20-31 mmol/L Anion Gap 16 H 5-15 Blood Urea Nitrogen 19 9-23 mg/dL Creatinine 0.90 0.550-1.02 mg/dL Glomerular Filtration Rate Calc 67 >90 mL/min BUN/Creatinine Ratio 21.1 H 10.0-20.0 Serum Glucose 172 H 74-106 mg/dL Calcium Level 9.7 8.7-10.4 mg/dL Troponin I High Sensitivity 1184 *H </=34 ng/L Current Medications Medications (Trade) Dose Ordered Sig/Mahad Route Start Time Stop Time Status Last Admin Amiodarone HCl 100 ml @ 600 mls/hr ONCE ONCE IV 10/31/24 07:30 10/31/24 07:39 DC 10/31/24 07:39 Enoxaparin Sodium (Lovenox) 90 mg ONCE ONCE SC 10/31/24 09:15 10/31/24 09:16 DC 10/31/24 09:19 [place] [id number] Ph: [phone] DIAGNOSTIC IMAGING Diagnostic Imaging Report : [id number] Signed PATIENT: LORENA ECKERT ACCT: [id number] UNIT: [id number] : 1950 LOC: ER ROOM / BED: / AGE / SEX: 74 / F ADM STATUS: REG ER SERVICE 7 ORDERING PHYSICIAN: LÓPEZ ROCHE MD PROCEDURE(s): CXRP - CHEST PORTABLE REASON: sob ORDER NUMBER(s): [id number], ACCESSION NUMBER(s): [id number] CHEST RADIOGRAPH Indication: sob Technique: Single frontal view of the chest was obtained COMPARISON: XY CHEST PORTABLE on DOS: 03/31/24, XY CHEST PORTABLE on DOS: 02/18/24 FINDINGS: Lines and Tubes: None Lungs: Increased interstitial prominence Pleura: No effusion. No pneumothorax. Cardiomediastinal contours: Cardiomegaly Bones: Unremarkable IMPRESSION: Increased interstital prominence. This may represent pulmonary vascular congestion or viral pneumonia. Clinical correlation advised. Patient alert. Atrial fibrillation. Started amiodarone. Answering questions. CVA affecting her ambulation. Unstable for transfer. EKG does show rapid AFib. Explained to the patient. Continue monitoring. [place] approved inpatient admission [id number]. Time of 1ST Reevaluation: 07:58 Reevaluation 1ST: Unchanged Patient Education/Counseling: Diagnosis, Treatment Family Education/Counseling: No Family Present SEPSIS Sepsis Screen Date sepsis recognized/suspect: Oct 31, 2024 Time Sepsis recognized/suspect: 0653 Recent Procedure: No On Antibiotic Therapy: No Respiratory Rate >20: No Heart Rate >90: Yes (HR-136) Temp<36 C (96.8 F) or >38.3 C: No SBP <90 or MAP <65 mmHG: No New Acute Mental Status Change: No Is the patient on CPAP, BIPAP,: No Physician Orders Electrocardigram (10/31/24 07:38) Electrocardigram (10/31/24 09:38) Chest Portable (10/31/24 07:18) Urinalysis (10/31/24 07:18) Amiodarone 360mg/200ml Premix (Nexterone (10/31/24 07:30) Vital Signs Date Time Temp Pulse Resp B/P (MAP) Pulse Ox O2 Delivery O2 Flow Rate FiO2 10/31/24 08:00 114 10/31/24 07:34 144 10/31/24 07:30 98.9 138 31 123/89 (100) 97 98.9 10/31/24 07:30 138 31 97 Room Air* 0 21 10/31/24 06:36 98.7 136 22 99/63 97 98.7 10/31/24 06:34 144 Laboratory Tests Test 10/31/24 08:05 White Blood Count 12.4 10^3/uL (4.4-10.8) H Medications Medications Dose Ordered Sig/Mahad Route Start Time Stop Time Status Last Admin Dose Admin Amiodarone HCl 100 ml @ 600 mls/hr ONCE ONCE IV 10/31/24 07:30 10/31/24 07:39 DC 10/31/24 07:39 Enoxaparin Sodium 90 mg ONCE ONCE SC 10/31/24 09:15 10/31/24 09:16 DC 10/31/24 09:19 Departure 1 Departure Time of Disposition: 07:50 Impression: Primary Impression: Atrial fibrillation Qualified Codes: I48.0 - Paroxysmal atrial fibrillation Disposition: ADMITTED INPATIENT Admit to: Med Surg Condition: Guarded Critical Care Note Critical Care Time?: Yes (90 min-critical care time only) Stability Stability form required: No Heart Score Heart Score: Heart Score Response (Comments) Value History Moderate Suspicious 1 EKG Normal 0 Age >65 2 Risk Factors 1 or 2 risk factors 1 Troponin Normal limit 0 Total 4 I personally scribed for LÓPEZ ROCHE MD ([email or web address]) on 10/31/24 at 07:23. Electronically submitted by Harini Yañez ([employer]). I personally scribed for LÓPEZ ROCHE MD ([email or web address]) on 10/31/24 at 07:34. Electronically submitted by Harini Yañez ([employer]). I personally scribed for LÓPEZ ROCHE MD ([email or web address]) on 10/31/24 at 08:18. Electronically submitted by Harini Yañez ([employer]). LÓPEZ ROCHE MD Oct 31, 2024 07:23
[2024-10-31] MEDS: AMIODARONE BOLUS KIT 100 ML IV ONE (07:39)
[2024-10-31] MEDS: AMIODARONE 360mg/200mL PREMIX 200 ML IV SCH ×2 (07:48→17:55)
--- NOTE | 2024-10-31 07:51 | DVH ---
CHEST RADIOGRAPH Indication: sob Technique: Single frontal view of the chest was obtained COMPARISON: XY CHEST PORTABLE on DOS: 03/31/24, XY CHEST PORTABLE on DOS: 02/18/24 FINDINGS: Lines and Tubes: None Lungs: Increased interstitial prominence Pleura: No effusion. No pneumothorax. Cardiomediastinal contours: Cardiomegaly Bones: Unremarkable IMPRESSION: Increased interstital prominence. This may represent pulmonary vascular congestion or viral pneumonia . Clinical correlation advised.
[2024-10-31 08:15] LABS: Hematocrit 52.9 % (36.0-46.0); Hemoglobin 17.4 g/dL (12.2-16.2); Mean Corpuscular Hemoglobin 31.1 pg (28.0-32.0); Mean Corpuscular Volume 94.4 fL (80.0-100.0); Nucleated Red Blood Cells % 0.1 %
[2024-10-31 08:25] LABS: Potassium 4.6 mmol/L (3.5-5.1); Sodium 143 mmol/L (136-145)
[2024-10-31 08:26] LABS: Anion Gap 16 (5-15)
[2024-10-31 08:27] LABS: Calcium 9.7 mg/dL (8.7-10.4)
[2024-10-31 08:32] LABS: BUN/Creatinine Ratio 21.1 (10.0-20.0); Blood Urea Nitrogen 19 mg/dL (9-23)
[2024-10-31 08:34] LABS: Carbon Dioxide 18 mmol/L (20-31); Chloride 109 mmol/L (98-107); Glucose 172 mg/dL (74-106)
[2024-10-31] MEDS: ENOXAPARIN SOD 100 MG/1 ML SYRINGE SC ONE (09:19)
[2024-10-31] MEDS ORDERED: MORPHINE SULFATE INJ 2 MG/ml SYRG IV PRN (10:30)
[2024-10-31] MEDS ORDERED: ACETAMINOPHEN 325 MG TAB PO PRN (10:30)
[2024-10-31] MEDS ORDERED: NITROGLYCERIN 0.4 MG SL TAB SL PRN (10:30)
[2024-10-31] MEDS ORDERED: ONDANSETRON HCL 4 MG/2 ML VIAL IV PRN (10:30)
[2024-10-31] MEDS: AMIODARONE 360mg/200mL PREMIX 200 ML IV ONE (10:32)
[2024-10-31] MEDS ORDERED: APIX5TAB PO (10:45)
[2024-10-31] MEDS ORDERED: ALBUTEROL SULF 2.5 MG/0.5ML(0.5%) NEB SOLN NEB PRN (10:45)
[2024-10-31 11:26] LABS: Lactic Acid w/Reflex 3.1 mmol/L (0.4-2.0)
[2024-10-31] MEDS: cefTRIAXone 1GM/50ML D5W 50 ML IV ONE (11:36)
[2024-10-31] MEDS: SODIUM CHLORIDE 0.9% 1,000 ML IV SCH (11:37)
--- NOTE | 2024-10-31 12:39 | DVHHP2 ---
History of Present Illness Reason for Visit: Shortness of breaths likely due to pneumonia History of Present Illness This is a 74-year-old female who is bed-bound with history of hypertension, CHF, CVA with left-sided weakness, atrial fibrillation and seizure presents to ED with chief complaint of shortness of breath x2 days. Upon evaluation, patient daughter is at the bedside who is her primary caregiver shared concern of mother's shortness of breath. Initial EKG in the ER shows uncontrolled atrial fibrillation 144 in which amiodarone bolus and drip was initiated by ER physician. The patient troponin was elevated at 1184, patient denies chest discomfort upon evaluation. The patient and daughter at the bedside is concerned and would like to be further evaluated and treated. The patient will be admitted under hospitalist care to the telemetry unit for continuous monitoring. The patient denies fever, chills, headache, dizziness, palpitati on, chest pain, nausea, vomiting, abdominal pain, diarrhea, constipation and other associated symptoms. The plan has been discussed with the patient and daughter in which all questions concerns have been addressed. Cardiovascular: AFIB, CHF, HTN CORRECTIONAL CORPORAL: CVA (Left-sided weakness) Past Surgical History: None Family History: None Smoke: No ALCOHOL: none Drugs: None Lives: with Family Domestic Violence: Neg Review of Systems Respiratory: Shortness of breath Allergies: Coded Allergies: Penicillins (Verified Allergy, Severe, 03/04/22) Shellfish Allergy (Verified Allergy, Unknown, 02/18/24) Medications Current Medications Medications Dose Ordered Sig/Mahad Route Start Time Stop Time Status Last Admin Dose Admin Sodium Chloride 1,000 ml @ 60 mls/hr [id number] IV 10/31/24 10:30 10/31/24 11:37 60 MLS/HR Ondansetron HCl 4 mg Q4HP PRN IV 10/31/24 10:30 Acetaminophen 650 mg Q6HP PRN PO 10/31/24 10:30 Nitroglycerin 0.4 mg Q5MINP PRN SL 10/31/24 10:30 Morphine Sulfate 2 mg Q30M PRN IV 10/31/24 10:30 Enoxaparin Sodium 90 mg DAILY SC 11/01/24 10:00 UNV Ceftriaxone Sodium 50 ml @ 100 mls/hr DAILY@09 IV 11/01/24 09:00 Albuterol 2.5 mg Q2HPRN PRN NEB 10/31/24 10:45 Exam Vital Signs Vital Signs Date Time Temp Pulse Resp B/P (MAP) Pulse Ox O2 Delivery O2 Flow Rate FiO2 10/31/24 11:38 118 10/31/24 10:58 21 123/89 97 0.0 21 10/31/24 07:30 98.9 98.9 10/31/24 07:30 Room Air* Exam The patient is bed-bound General Appearance: Alert, Oriented X3, Cooperative, mild distress HEENT: Atraumatic, PERRLA, Mucous membr. moist/pink Respiratory: Clear to auscultation, Normal air movement Cardiovascular: No murmurs, Other (Atrial fibrillation with occasional PVC) Abdominal: Normal bowel sounds, Soft, No tenderness, No hepatospenomegaly, No masses Extremities: No clubbing, No cyanosis, No edema, Normal pulses, No tenderness/swelling Neuro: Normal speech, Other (Left-sided weakness) Psych/Mental Status: Mental status NL Labs/Xrays Labs Test 10/31/24 10:55 10/31/24 08:05 Range/Units Lactic Acid Level 3.1 *H 0.4-2.0 mmol/L Troponin I High Sensitivity 4698 *H </=34 ng/L White Blood Count 12.4 H 4.4-10.8 10^3/uL Red Blood Count 5.61 H 4.0-5.20 10^6/uL Hemoglobin 17.4 H 12.2-16.2 g/dL Hematocrit 52.9 H 36.0-46.0 % Mean Corpuscular Volume 94.4 80.0-100.0 fL Mean Corpuscular Hemoglobin 31.1 28.0-32.0 pg Mean Corpuscular Hemoglobin Concent 32.9 32.0-36.0 g/dL Red Cell Distribution Width 14.6 H 11.8-14.3 % Platelet Count 268 140-450 10^3/uL Mean Platelet Volume 10.2 6.9-10.8 fL Neutrophils (%) (Auto) 82.0 H 37.0-80.0 % Lymphocytes (%) (Auto) 12.0 10.0-50.0 % Monocytes (%) (Auto) 5.3 0.0-12.0 % Eosinophils (%) (Auto) 0.5 0.0-7.0 % Basophils (%) (Auto) 0.2 0.0-2.0 % Neutrophils # (Auto) 10.2 H 1.6-8.6 10 ^3/uL Lymphocytes # (Auto) 1.5 0.4-5.4 10 ^3/uL Monocytes # (Auto) 0.7 0-1.3 10 ^3/uL Eosinophils # (Auto) 0.1 0-0.8 10 ^3/uL Basophils # (Auto) 0 0-0.2 10 ^3/uL Nucleated Red Blood Cells 0.1 % D-Dimer, Quantitative 3.99 H 0.0-0.49 mg/L FEU Sodium Level 143 136-145 mmol/L Potassium Level 4.6 3.5-5.1 mmol/L Chloride Level 109 H 98-107 mmol/L Carbon Dioxide Level 18 L 20-31 mmol/L Anion Gap 16 H 5-15 Blood Urea Nitrogen 19 9-23 mg/dL Creatinine 0.90 0.550-1.02 mg/dL Glomerular Filtration Rate Calc 67 >90 mL/min BUN/Creatinine Ratio 21.1 H 10.0-20.0 Serum Glucose 172 H 74-106 mg/dL Calcium Level 9.7 8.7-10.4 mg/dL ORDERING PHYSICIAN: LÓPEZ ROCHE MD PROCEDURE(s): CXRP - CHEST PORTABLE REASON: sob ORDER NUMBER(s): [id number], ACCESSION NUMBER(s): [id number] CHEST RADIOGRAPH Indication: sob Technique: Single frontal view of the chest was obtained COMPARISON: XY CHEST PORTABLE on DOS: 03/31/24, XY CHEST PORTABLE on DOS: 02/18/24 FINDINGS: Lines and Tubes: None Lungs: Increased interstitial prominence Pleura: No effusion. No pneumothorax. Cardiomediastinal contours: Cardiomegaly Bones: Unremarkable IMPRESSION: Increased interstital prominence. This may represent pulmonary vascular congestion or viral pneumonia. Clinical correlation advised. ATED BY: JANI VILLALBA MD DICTATED DATE/TIME: 10/31/24747 SIGNED BY: JANI VILLALBA MD SIGNED DATE/TIME: 10/31/24747 CC: SEPSIS Sepsis Screen Date sepsis recognized/suspect: Oct 31, 2024 Time Sepsis recognized/suspect: 07 Recent Procedure: No On Antibiotic Therapy: No Respiratory Rate >20: Yes Heart Rate >90: Yes Temp<36 C (96.8 F) or >38.3 C: No SBP <90 or MAP <65 mmHG: No New Acute Mental Status Change: No Is the patient on CPAP, BIPAP,: No Physician Orders Electrocardigram (10/31/24 07:38) Electrocardigram (10/31/24 09:38) Chest Portable (10/31/24 07:18) Urinalysis (10/31/24 07:18) Amiodarone 360mg/200ml Premix (Nexterone (10/31/24 10:30) * Cardiology Consult (10/31/24 10:25) Admit (10/31/24 10:25) Sodium Chloride 0.9% (10/31/24 10:30) Ondansetron Hcl (Zofran) (10/31/24 10:30) Complete Blood Count (11/01/24 04:00) Comprehensive Metabolic Panel (11/01/24 04:00) Echo 2d Mode Cardiac Dop (10/31/24 10:25) Condition: Serious (10/31/24 10:25) Acetaminophen Tablet (Tylenol Tablet) (10/31/24 10:30) Bedrest With Bathroom Privileg (10/31/24 10:25) Sequential Compression Device (10/31/24 ) Nitroglycerin Sublingual (Ntrostat Subli (10/31/24 10:30) Morphine Sulfate Injection (10/31/24 10:30) Stat Ekg For Chest Pain (10/31/24 10:25) Notify Md Of Changes From Base (10/31/24 10:25) Dry Transfer Man For 24 Hours (10/31/24 10:25) Emergency Dysrhythmia Protocol (10/31/24 10:25) Rhythm Strips Once Every Shift (10/31/24 10:25) Oxygen By Nasal Cannula (10/31/24 10:25) Communication Order (10/31/24 10:25) Troponin-I Hs (10/31/24 11:41) Enoxaparin Sodium (Lovenox) (11/01/24 10:00) Ceftriaxone 1gm/50ml D5w (Rocephin) (11/01/24 09:00) Albuterol Medneb (Ventolin Medneb) (10/31/24 10:45) Electrocardigram (10/31/24 11:33) Vital Signs Date Time Temp Pulse Resp B/P (MAP) Pulse Ox O2 Delivery O2 Flow Rate FiO2 10/31/24 11:38 118 10/31/24 10:58 114 21 123/89 97 0.0 21 10/31/24 08:00 114 10/31/24 07:34 144 10/31/24 07:30 98.9 138 31 123/89 (100) 97 98.9 10/31/24 07:30 138 31 97 Room Air* 0 21 10/31/24 06:36 98.7 136 22 99/63 97 98.7 10/31/24 06:34 144 Laboratory Tests Test 10/31/24 08:05 10/31/24 10:55 White Blood Count 12.4 10^3/uL (4.4-10.8) H Lactic Acid Level 3.1 mmol/L (0.4-2.0) *H Medications Medications Dose Ordered Sig/Mahad Route Start Time Stop Time Status Last Admin Dose Admin Amiodarone HCl 100 ml @ 600 mls/hr ONCE ONCE IV 10/31/24 07:30 10/31/24 07:39 DC 10/31/24 07:39 600 MLS/HR Ceftriaxone Sodium 50 ml @ 50 mls/hr ONCE ONCE IV 10/31/24 10:45 10/31/24 11:44 DC 10/31/24 11:36 50 MLS/HR Enoxaparin Sodium 90 mg ONCE ONCE SC 10/31/24 09:15 10/31/24 09:16 DC 10/31/24 09:19 90 MG Sodium Chloride 1,000 ml @ 60 mls/hr [id number] IV 10/31/24 10:30 10/31/24 11:37 60 MLS/HR Assessment/Plan Assessment/Plan Shortness of breaths likely due to pneumonia--brought in by EMS due to complaint of shortness of breath x2 days Patient who is bed-bound with left-sided weakness status post stroke Patient states stopped taking Eliquis sometime in July of this year History of AFib, CHF, CVA, hypertension and seizure EKG shows uncontrolled atrial fibrillation 144 and was given amiodarone bolus and drip per ER physician Admit to telemetry unit Reviewed CBC which shows leukocytosis Reviewed BMP elevated gap 16 Elevated troponin 1184 likely due to demand ischemia; we will repeat 2nd and 3rd Reviewed chest x-ray which shows pulmonary vascular congestion or viral pneumonia Blood culture pending Lactic acid pending Urinalysis pending IV Lasix IV ceftriaxone now and daily IV Protonix now and daily Lovenox mg per kg daily Med neb treatment Q 6 hours Albuterol p.r.n. for shortness of breaths Shortness of breaths rule out PE D-dimer is elevated Bilateral lower extremity ultrasound pending Order a CT chest pending Uncontrolled atrial fibrillation Continue amiodarone drip Reviewed 12 lead EKG Consult Cardiology for evaluation and recommendation CHF BNP pending Echocardiogram pending Hypertension Continue antihypertensive agent Continue to monitor BP Seizure-can not recall last seizure Seizure precaution Continue to monitor Reconcile home medication DVT prophylaxis PUD prophylaxis Labs in a.m. Discussed plan of care with the patient and daughter in which all questions concerns have been addressed Plan discussed with: Patient, Daughter My Orders Orders - BRADEN LOPEZ PROMOTIONS ASSISTANT Procedure Category Date Status Time * Cardiology Consult CONS 10/31/24 Transmitted 10:25 Admit ADMIT 10/31/24 Transmitted 10:25 Sodium Chloride 0.9% PHA 10/31/24 In Process 10:30 Ondansetron Hcl PHA 10/31/24 In Process (Zofran) 10:30 Complete Blood Count LAB 11/01/24 Verified 04:00 Comprehensive LAB 11/01/24 Verified Metabolic Panel 04:00 Echo 2d Mode Cardiac US 10/31/24 Logged DOP 10:25 Condition: Serious TYSON 10/31/24 In Process 10:25 Acetaminophen Tablet PHA 10/31/24 In Process (Tylenol Tablet) 10:30 Bedrest With Bathroom TYSON 10/31/24 In Process Privileg 10:25 Sequential TYSON 10/31/24 In Process Compression Device Nitroglycerin PHA 10/31/24 In Process Sublingual (Ntrostat 10:30 Morphine Sulfate PHA 10/31/24 In Process Injection 10:30 Stat Ekg For Chest [facility]ON 10/31/24 In Process Pain 10:25 Notify Of Changes [facility] 10/31/24 In Process From Base 10:25 Dry Transfer Man For TYSON 10/31/24 In Process 24 Hours 10:25 Emergency Dysrhythmia T[facility]ON 10/31/24 In Process Protocol 10:25 Rhythm Strips Once [facility]ON 10/31/24 In Process Every Shift 10:25 Oxygen By Nasal RT 10/31/24 Transmitted Cannula 10:25 Communication Order ORDERS 10/31/24 Transmitted 10:25 Troponin-I Hs LAB 10/31/24 Logged 11:41 Enoxaparin Sodium PHA 11/01/24 Logged (Lovenox) 10:00 Ceftriaxone 1gm/50ml PHA 11/01/24 In Process D5w (Rocephin) 09:00 Albuterol Medneb PHA 10/31/24 In Process (Ventolin Medneb) 10:45 Date of Service: Oct 31, 2024 Billing Provider: BRADEN LOPEZ Common Visit Codes: [id number] INP/OBS CARE (HIGH) BRADEN LOPEZ Oct 31, 2024 12:39
--- NOTE | 2024-10-31 13:32 | DVHINCON2 ---
[facility] 10/31/24 1332: Date Seen: Oct 31, 2024 Referring Physician IVAN Viramontes Reason for Consultation A-fib with RVR History of Present Illness This is a 74-year-old female who presented to the emergency room via EMS with a chief complaint of shortness of breath for two days. At time of assessment, the patient was found A&O X 2 and with dysarthria. Information obtained from records which state the patient presented with complains of SOB associated with nausea. Per primary RN, daughter stated she is bedbound status. On arrival to the emergency room she underwent a 12 lead electrocardiogram revealing an atrial fibrillation rhythm with rapid ventricular rate up to the 140s bpm and a prolonged QTC at 525 ms. Serial troponin levels are trending up with latest in the 7,000s ng/L. It appears she follows up with the primary community health consultant at [facility]. 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 Past Medical History Past medical history reviewed. No other significant than mentioned above. Past Surgical History Unknown past surgical history. Family History Unknown family history. Social History Unknown social history. Allergies: Coded Allergies: Penicillins (Verified Allergy, Severe, 03/04/22) Shellfish Allergy (Verified Allergy, Unknown, 02/18/24) Home Meds Reported Medications Apixaban Base (ELIQUIS) 5 Mg Tab, 1 TAB PO BID 10/31/24 Home Meds Home medications reviewed. Current Medications Current Medications Medications (Trade) Dose Ordered Sig/Mahad Route PRN Reason Start Time Stop Time Status Last Admin Sodium Chloride 1,000 ml @ 60 mls/hr [id number] IV 10/31/24 10:30 10/31/24 11:37 Ondansetron HCl (Zofran) 4 mg Q4HP PRN IV NAUSEA / VOMITING 10/31/24 10:30 Acetaminophen (Tylenol Tablet) 650 mg Q6HP PRN PO PAIN SCALE 1-3 OR TEMP>100.4 10/31/24 10:30 Nitroglycerin (Ntrostat Sublingual) 0.4 mg Q5MINP PRN SL FOR CHEST PAIN 10/31/24 10:30 Morphine Sulfate 2 mg Q30M PRN IV FOR CHEST PAIN 10/31/24 10:30 Enoxaparin Sodium (Lovenox) 90 mg DAILY SC 11/01/24 10:00 UNV Ceftriaxone Sodium 50 ml @ 100 mls/hr DAILY@09 IV 11/01/24 09:00 Albuterol (Ventolin Medneb) 2.5 mg Q2HPRN PRN NEB SHORTNESS OF BREATH 10/31/24 10:45 10/31/24 12:49 DC Albuterol (Ventolin Medneb) 2.5 mg Q6HR NEB 10/31/24 18:00 Ipratropium [place] (Atrovent Medneb) 0.5 mg Q6HR NEB 10/31/24 18:00 Albuterol (Ventolin Medneb) 2.5 mg Q2HPRN PRN NEB SHORTNESS OF BREATH 10/31/24 12:45 Review of Systems Constitutional: No symptom reported Ears, Nose, & Throat: No symptom reported Eyes: No symptom reported Neurological: No symptoms reported Pulmonary/Respiratory: SOB Cardiovascular: No symptom reported Gastrointestinal: Nausea Genitourinary: No symptom reported Musculoskeletal: No symptom reported Skin: No symptom reported Psychiatric: No symptom reported Endocrine: No symptom reported Hemotologic/Lymphatic: No symptom reported Vital Signs Vital Signs Date Time Temp Pulse Resp B/P (MAP) Pulse Ox O2 Delivery O2 Flow Rate FiO2 10/31/24 12:00 121 43 133/99 (110) 93 10/31/24 11:00 98.3 98.3 10/31/24 10:58 0.0 21 10/31/24 07:30 Room Air* Physical Exam General Appearance: ALOC. +dysarthria. Mild SOB. Mild acute distress Head Exam: Normal inspection Neck Exam: Normal inspection. Normal alignment Pulmonary/Respiratory: Crackles to bilateral breath sounds Cardiovascular/Chest: Irregularly irregular rate and rhythm. A-fib with RVR. No murmurs. + JVD. Peripheral Pulses: 2+ Radial (R). 2+ Radial (L). 1+ Pedal (R). 1+ Pedal (L) Abdominal Exam: Normal bowel sounds. Soft. Ankle Exam: Positive ankle edema Lower extremities: Positive lower extremity edema Neuro/Mental Status: A&O x2. ALOC. +Dysarthria Thoughts/Psych: Unable to assess at this time Appearance: Mild acute distress Skin Exam: Right anterior foot wound Labs/Diagnostic Data Labs Test 10/31/24 12:41 10/31/24 08:05 Range/Units Lactic Acid Level 2.7 *H 0.4-2.0 mmol/L Troponin I High Sensitivity 7697 *H </=34 ng/L White Blood Count 12.4 H 4.4-10.8 10^3/uL Red Blood Count 5.61 H 4.0-5.20 10^6/uL Hemoglobin 17.4 H 12.2-16.2 g/dL Hematocrit 52.9 H 36.0-46.0 % Mean Corpuscular Volume 94.4 80.0-100.0 fL Mean Corpuscular Hemoglobin 31.1 28.0-32.0 pg Mean Corpuscular Hemoglobin Concent 32.9 32.0-36.0 g/dL Red Cell Distribution Width 14.6 H 11.8-14.3 % Platelet Count 268 140-450 10^3/uL Mean Platelet Volume 10.2 6.9-10.8 fL Neutrophils (%) (Auto) 82.0 H 37.0-80.0 % Lymphocytes (%) (Auto) 12.0 10.0-50.0 % Monocytes (%) (Auto) 5.3 0.0-12.0 % Eosinophils (%) (Auto) 0.5 0.0-7.0 % Basophils (%) (Auto) 0.2 0.0-2.0 % Neutrophils # (Auto) 10.2 H 1.6-8.6 10 ^3/uL Lymphocytes # (Auto) 1.5 0.4-5.4 10 ^3/uL Monocytes # (Auto) 0.7 0-1.3 10 ^3/uL Eosinophils # (Auto) 0.1 0-0.8 10 ^3/uL Basophils # (Auto) 0 0-0.2 10 ^3/uL Nucleated Red Blood Cells 0.1 % D-Dimer, Quantitative 3.99 H 0.0-0.49 mg/L FEU Sodium Level 143 136-145 mmol/L Potassium Level 4.6 3.5-5.1 mmol/L Chloride Level 109 H 98-107 mmol/L Carbon Dioxide Level 18 L 20-31 mmol/L Anion Gap 16 H 5-15 Blood Urea Nitrogen 19 9-23 mg/dL Creatinine 0.90 0.550-1.02 mg/dL Glomerular Filtration Rate Calc 67 >90 mL/min BUN/Creatinine Ratio 21.1 H 10.0-20.0 Serum Glucose 172 H 74-106 mg/dL Calcium Level 9.7 8.7-10.4 mg/dL Assessment Non ST-Elevation myocardial infarction Acute on chronic decompensated HFrEF, NYHA Class III Atrial fibrillation with rapid ventricular rate, Stage III 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 Emerson) Case discussed with Dr. Emerson. Continue amiodarone drip per pharmacy protocol and therapeutic Lovenox ([id number] Score 7 points, HAS-BLED Score 3 points). Initiate single-antiplatelet therapy and lipid-lowering agent. Initiate preload and afterload reduction, strict I&Os, daily weight, and maintain fluid restrictions. Trend troponin levels. Obtain head CT. Monitor ECG changes closely and notify. Further orders per clinical course. Thank you for allowing us to participate in this patient's care. Please call if you have any questions or concerns. This medical document was created using an electronic medical record system with voice recognition software and computerized dictation system. Although this document has been carefully reviewed, there might still be some phonetic and typographical errors. Occasional wrong-word or ``sound-alike substitutions may have occurred due to the inherent limitations of voice recognition software. These areas are purely typographical due to imperfections of the software programs and do not reflect any compromise in the patient's medical care. Please read the chart carefully and recognize, using context, where these substitutions have occurred. Plan discussed with: Patient, Other NYHA Physical activity limitations: Class3(Marked) ordinary (activity causes symtoms) Date of Service: Oct 31, 2024 Billing Provider: [facility] Cardiology Common Codes: 73744-[id number] CARE 30-74 MIN VAMSI EMERSON MD 11/01/24 1140: Allergies: Coded Allergies: Penicillins (Verified Allergy, Severe, 03/04/22) Shellfish Allergy (Verified Allergy, Unknown, 02/18/24) Home Meds Reported Medications Apixaban Base (ELIQUIS) 5 Mg Tab, 1 TAB PO BID 10/31/24 Plan/Recommendation very sick pt seen with RN agree with fnps assessment and plan diurese pt, rate control Plan discussed with: Patient [facility] Oct 31, 2024 13:32 VAMSI EMERSON MD Nov 01, 2024 11:40
[2024-10-31 14:36] LABS: Triglycerides 91.0 mg/dL (< 150)
[2024-10-31 14:37] LABS: Magnesium 2.3 mg/dL (1.6-2.6)
[2024-10-31 14:38] LABS: Cholesterol 141.0 mg/dL (< 200)
[2024-10-31 14:39] LABS: HDL Cholesterol 40.0 mg/dL (40-59)
[2024-10-31 14:54] LABS: Urine Protein, UAD TRACE (Negative)
[2024-10-31] MEDS: MAGNESIUM SULFATE 1GM/100ML 100 ML IV ONE (15:00)
[2024-10-31] MEDS ORDERED: CEFEPIME 1GM/ 50ML 50 ML IV ONE (15:00)
[2024-10-31] MEDS ORDERED: VANCOMYCIN PER PHARMACY 0 MG IV SCH (15:00)
[2024-10-31] MEDS: FUROSEMIDE 40 MG/4 ML VIAL IV ONE (15:01)
--- NOTE | 2024-10-31 15:04 | DVH ---
US BiLat Lower DVT HISTORY: Rule out DVT COMPARISON: None TECHNIQUE: Duplex doppler evaluation of the deep venous system of the lower extremity from the common femoral veins, superficial femoral vein, great saphenous vein, deep femoral vein, popliteal vein, an d calf veins, including color doppler and spectral/pulsed waveform analysis, was performed. FINDINGS: Right: - Common femoral vein: Compressible - Deep femoral vein: Compressible - Femoral vein: Compressible - Popliteal vein: Compressible - Posterior tibial vein: Waveforms present - Other: Nothing Left: - Common femoral vein: Compressible - Deep femoral vein: Compressible - Femoral vein: Compressible - Popliteal vein: Compressible - Posterior tibial vein: Waveforms present - Other: Nothing IMPRESSION: No right or left lower extremity deep venous thrombosis.
--- NOTE | 2024-10-31 15:07 | DVH ---
EXAM: CT HEAD WITHOUT CONTRAST INDICATION: Dysarthria TECHNIQUE: CT of the head without intravenous contrast. Radiation Dose : 1. Head: CT Dose: CTDI volume is 48.39 mGy. Dose-length product is 863.59 mGy*cm The dose indicators for CT are the volume Computed Tomography (CT) Dose Index (CTDIvol) and the Dose Length Product (DLP), and are measured in units of mGy and mGy-cm, respectively. These indicators are not patient dose, but values generated from the CT scanner acquisition factors. The report includes radiation exposure data for exposures received during this examination. COMPARISON: CT HEAD WITHOUT CONTRAST on DOS: 03/31/24 FINDINGS: There is no evidence of acute intracranial hemorrhage, extra-axial collection, mass effect, midline s hift, herniation or hydrocephalus. Right frontal lobe and left frontal lobe encephalomalacia, unchanged. The ventricles, sulci and cisterns are age appropriate. The gunn-white differentiation is intact. Patchy periventricular and subcortical white matter hypoattenuation is nonspecific but may be related to small vessel ischemic disease. The visualized paranasal sinuses and mastoid air cells are clear. The surrounding soft tissues and osseous structures are unremarkable. IMPRESSION: No acute intracranial abnormality. Radiation optimization: All CT scans at this facility use at least one of these dose optimization brittany hniques: automated exposure control mA and/or kV adjustment per patient size (includes targeted exam s where dose is matched to clinical indication) or iterative reconstruction.
[2024-10-31] MEDS: FUROSEMIDE 40 MG/4 ML VIAL IV SCH (16:26)
[2024-10-31] MEDS: VANCOMYCIN 1.5GM/250ML 250 ML IV ONE (17:37)
[2024-10-31] MEDS: IPRATROPIUM BROM 0.5 MG/2.5ML INH SOL NEB SCH (18:13)
[2024-10-31] MEDS: ALBUTEROL SULF 2.5 MG/0.5ML(0.5%) NEB SOLN NEB SCH (18:13)
[2024-10-31 19:14] LABS: Lactic Acid w/Reflex 4.5 mmol/L (0.4-2.0)
[2024-10-31] MEDS: SODIUM CHLORIDE 0.9% 500 ML IV ONE (20:26)
[2024-10-31] MEDS: CARVEDILOL 3.125 MG TAB PO SCH (22:00)
[2024-10-31] MEDS ORDERED: CEFEPIME 1GM/ 50ML 50 ML IV SCH (22:00)
[2024-10-31] MEDS: ATORVASTATIN 20 MG TAB PO SCH (22:01)
[2024-10-31] MEDS: ALBUTEROL SULF 2.5 MG/0.5ML(0.5%) NEB SOLN NEB PRN (22:06)
[2024-10-31 23:54] LABS: Lactic Acid w/Reflex 2.7 mmol/L (0.4-2.0)
[2024-11-01] VITALS (13 sets, daily range): BP systolic 102–129; BP diastolic 53–91; PULSE 54–122; RESP 16–22; TEMP 97.1–97.8; O2SAT 94–100
[2024-11-01 06:46] LABS: Hematocrit 49.7 % (36.0-46.0); Hemoglobin 16.6 g/dL (12.2-16.2); Mean Corpuscular Hemoglobin 31.2 pg (28.0-32.0); Mean Corpuscular Volume 93.1 fL (80.0-100.0); Nucleated Red Blood Cells % 0.1 %
[2024-11-01 07:08] LABS: Alanine Aminotransferase 27 U/L (7-40); Albumin 4.3 g/dL (3.2-4.8); Anion Gap 15 (5-15); BUN/Creatinine Ratio 13.6 (10.0-20.0); Bilirubin, Total 0.6 mg/dL (0.2-1.0); Blood Urea Nitrogen 16 mg/dL (9-23); Calcium 9.8 mg/dL (8.7-10.4); Potassium 4.3 mmol/L (3.5-5.1); Sodium 142 mmol/L (136-145); Total Protein 7.6 g/dL (5.7-8.2)
[2024-11-01 07:11] LABS: Alkaline Phosphatase 125 U/L (46-116); Carbon Dioxide 17 mmol/L (20-31); Chloride 110 mmol/L (98-107); Glucose 144 mg/dL (74-106)
[2024-11-01 07:14] LABS: Lactic Acid w/Reflex 2.6 mmol/L (0.4-2.0)
--- NOTE | 2024-11-01 07:15 | ECG ---
[facility] Test Date: 2024-10-31 Test Time: 11:38:28 Pat Name: LORENA ECKERT Department: [facility] ED Patient ID: [id number] Room: 0246T B Gender: F Type Cutter: LOVE : 1950 Requested By: LÓPEZ ROCHE Order Number: [id number] Reading MD: Ge Lepe Measurements Intervals [place] Rate: 118 P: 0 MO: 0 QRS: 41 QRSD: 107 T: -46 QT: 374 QTc: 525 Interpretive Statements Atrial fibrillation Borderline T abnormalities, diffuse leads Prolonged QT interval Electronically Signed On 11-02-2024 18:19:34 PDT by Ge Lepe Please click the below link to view image of tracing.
[2024-11-01] MEDS ORDERED: cefTRIAXone 1GM/50ML D5W 50 ML IV SCH (09:00)
[2024-11-01] MEDS: SPIRONOLACTONE 25 MG TAB PO SCH (09:15)
[2024-11-01] MEDS: VALSARTAN 80 MG TAB PO SCH (09:15)
[2024-11-01] MEDS: EMPAGLIFLOZIN 10 MG TAB PO SCH (09:16)
[2024-11-01] MEDS ORDERED: ENOXAPARIN SOD 100 MG/1 ML SYRINGE SC SCH (10:00)
--- NOTE | 2024-11-01 10:09 | DVHSR ---
APPROVED REPORT EXAM: LIMITED Two-dimensional and M-mode echocardiogram with Doppler and color Doppler. Blood Pressure: 123/89 mmHg INDICATION Atrial Fibrillation Uncontrolled RISK FACTORS Obesity: Height: 5' 2", Weight: 200 DIMENSIONS LVDd5.0 (3.8-5.7cm)LA (2D)4.4 (1.9-4.0cm)Aortic Root3.0 (2.0-3.7cm) LVDs4.6 (2.5-4.0cm)LA (MM) (1.9-4.0cm)Aortic Cusp Exc1.7 (1.5-2.0cm) EF (%) 15.0 (55-70%)Rt. Atrium4.5 (1.9-4.0cm)Asc. Aorta cm IVSd1.0 (0.7-1.1cm)RV (D) (1.8-2.4cm) PWd1.1 (0.7-1.1cm) Mitral Valve MitralMitral Stenosis E wave1.40m/sMV Mean GR.mmHg A wave0.80m/sMV Peak GR.mmHg E/A ratio1.82D MVAcm2 Aortic Valve Aortic ValveAortic Stenosis V10.60m/Torsten Mean GR.3mmHg V21.10m/Torsten Peak GR.5mmHg LVOT Diameter2.4 (1.8-2.4cm)Doppler AVA2.47cm2 AI P 1/2 Hhxb060.78ms Pulmonic Valve V20.40m/s Tricuspid Valve TR Velocity3.30m/s [id number] Conclusion lvef 20-25% severe systolic HF RV Not well seen severe mitral regurg moderate tricuspid regurg
--- NOTE | 2024-11-01 12:30 | DVHPN2 ---
Progress Note Date Seen: Nov 01, 2024 Medical Necessity Reason Pt with a Central, PICC or Fol: No Subjective Patient reports: Feels better Other Systems: pt seen with daughter had long talk with family Objective vital signs Vital Sign Date Time Temp Pulse Resp B/P (MAP) Pulse Ox O2 Delivery O2 Flow Rate FiO2 11/01/24 09:16 99 129/91 11/01/24 09:00 97.6 16 99 97.6 11/01/24 06:15 Nasal Cannula* 4 36 Total Intake and Output 10/31/24 10/31/24 11/01/24 15:00 23:00 07:00 Intake Total 150 ml 700 ml 50 ml Output Total 100 ml Balance 150 ml 700 ml -50 ml medications Current Medications Medications Dose Ordered Sig/Mahad Route Start Time Stop Time Status Last Admin Dose Admin Sodium Chloride 1,000 ml @ 60 mls/hr [id number] IV 10/31/24 10:30 11/01/24 03:14 60 MLS/HR Ondansetron HCl 4 mg Q4HP PRN IV 10/31/24 10:30 Acetaminophen 650 mg Q6HP PRN PO 10/31/24 10:30 Nitroglycerin 0.4 mg Q5MINP PRN SL 10/31/24 10:30 Morphine Sulfate 2 mg Q30M PRN IV 10/31/24 10:30 Albuterol 2.5 mg Q6HR NEB 10/31/24 18:00 11/01/24 06:16 2.5 MG Ipratropium [place] 0.5 mg Q6HR NEB 10/31/24 18:00 11/01/24 06:16 0.5 MG Albuterol 2.5 mg Q2HPRN PRN NEB 10/31/24 12:45 10/31/24 22:06 2.5 MG Furosemide 40 mg BIDD IV 10/31/24 18:00 11/01/24 05:33 40 MG Vancomycin HCl 0 ml @ 0 mls/hr UD IV 10/31/24 15:00 Empaglifozin 10 mg DAILY PO 11/01/24 10:00 11/01/24 09:16 10 MG Valsartan 40 mg DAILY PO 11/01/24 10:00 11/01/24 09:15 40 MG Spironolactone 25 mg DAILY PO 11/01/24 10:00 11/01/24 09:15 25 MG Carvedilol 3.125 mg Q12HR PO 10/31/24 22:00 11/01/24 09:16 3.125 MG Aspirin 81 mg DAILY PO 11/01/24 10:00 11/01/24 09:13 81 MG Atorvastatin Calcium 40 mg HS PO 10/31/24 22:00 10/31/24 22:01 40 MG Levofloxacin/ Dextrose 100 ml @ 100 mls/hr DAILY IV 10/31/24 15:39 11/01/24 09:12 100 MLS/HR Vancomycin HCl 100 ml @ 100 mls/hr DAILY@1700 IV 11/01/24 17:00 Examination: GENERAL:Abnormal, HEENT:Abnormal, LUNGS:Abnormal, CVS:Abnormal, ABDOMEN:Abnormal laboratory and microbiology Laboratory Tests 11/01/24 05:39 Test 11/01/24 05:39 Range/Units Serum Glucose 144 H 74-106 mg/dL Problem List/Assessment/Plan Problem List/Assessment/Plan NSTEMI hx of severe class III systolic and diastolic acute on chronhic HF ckd hx of cva x 3 persistent afib on no meds by her [facility] respiratory distress bedbound morbid obesity pt cannot tolerate blood thnners per family 2/2 to vaginal bleeding very high future cva risk (they are aware) [facility] is aware cont anticoag for now here rhyhtm controll---po amio and coreg, pt was on amio in past GDMT- aldactone, explained to family given low ef, 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
--- NOTE | 2024-11-01 12:54 | DVHPN2 ---
Reviewed: Care Plan, H&P, Labs, Medications, Previous Orders, Radiology Changes from previous H/P or p: No Changes Respiratory: Shortness of breath Objective Vitals Vital Signs Date Time Temp Pulse Resp B/P (MAP) Pulse Ox O2 Delivery O2 Flow Rate FiO2 11/01/24 09:16 99 129/91 11/01/24 09:00 97.6 16 99 97.6 11/01/24 06:15 Nasal Cannula* 4 36 Intake/Output Intake and Output 11/01/24 07:00 Intake Total 900 ml Output Total 100 ml Balance 800 ml Intake Oral 50 ml IV Total 850 ml Output Urine Total 100 ml Medications Current Medications Medications Dose Ordered Sig/Mahad Route Start Time Stop Time Status Last Admin Dose Admin Sodium Chloride 1,000 ml @ 60 mls/hr [id number] IV 10/31/24 10:30 11/01/24 03:14 60 MLS/HR Ondansetron HCl 4 mg Q4HP PRN IV 10/31/24 10:30 Acetaminophen 650 mg Q6HP PRN PO 10/31/24 10:30 Nitroglycerin 0.4 mg Q5MINP PRN SL 10/31/24 10:30 Morphine Sulfate 2 mg Q30M PRN IV 10/31/24 10:30 Albuterol 2.5 mg Q6HR NEB 10/31/24 18:00 11/01/24 06:16 2.5 MG Ipratropium [place] 0.5 mg Q6HR NEB 10/31/24 18:00 11/01/24 06:16 0.5 MG Albuterol 2.5 mg Q2HPRN PRN NEB 10/31/24 12:45 10/31/24 22:06 2.5 MG Furosemide 40 mg BIDD IV 10/31/24 18:00 11/01/24 05:33 40 MG Vancomycin HCl 0 ml @ 0 mls/hr UD IV 10/31/24 15:00 Empaglifozin 10 mg DAILY PO 11/01/24 10:00 11/01/24 09:16 10 MG Valsartan 40 mg DAILY PO 11/01/24 10:00 11/01/24 09:15 40 MG Spironolactone 25 mg DAILY PO 11/01/24 10:00 11/01/24 09:15 25 MG Carvedilol 3.125 mg Q12HR PO 10/31/24 22:00 11/01/24 09:16 3.125 MG Aspirin 81 mg DAILY PO 11/01/24 10:00 11/01/24 09:13 81 MG Atorvastatin Calcium 40 mg HS PO 10/31/24 22:00 10/31/24 22:01 40 MG Levofloxacin/ Dextrose 100 ml @ 100 mls/hr DAILY IV 10/31/24 15:39 11/01/24 09:12 100 MLS/HR Vancomycin HCl 100 ml @ 100 mls/hr DAILY@1700 IV 11/01/24 17:00 Laboratory Results Laboratory Tests 11/01/24 05:39 Chemistry Test 11/01/24 05:39 Albumin 4.3 g/dL (3.2-4.8) Calcium Level 9.8 mg/dL (8.7-10.4) Total Protein 7.6 g/dL (5.7-8.2) LFT Test 11/01/24 05:39 Alanine Aminotransferase (ALT) 27 U/L (7-40) Alkaline Phosphatase 125 U/L (46-116) H Aspartate Amino Transferase (AST) 199 U/L (13-40) H Total Bilirubin 0.6 mg/dL (0.2-1.0) Urinalysis Test 10/31/24 14:42 Urine Color Yellow (Yellow) Urine Clarity Clear (Clear) Urine pH 5.5 (5.0-9.0) Urine Specific [place] 1.014 (1.001-1.035) Urine Protein Trace (Negative) H Urine Ketones Negative (Negative) Urine Blood Negative /uL (Negative) Urine Nitrite Negative (Negative) Urine Bilirubin Negative (Negative) Urine Urobilinogen Normal mg/dL (Negative) Urine Leukocyte Esterase Negative /uL (Negative) Urine Glucose Normal mg/dL (Normal) Labs and/or images reviewed: Labs reviewed by me, Image(s) reviewed by me Assessment/Plan Assessment/Plan Non ST-Elevation myocardial infarction troponin of 1184, treatment per ACS protocol, cardiology consult by Dr. 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
--- NOTE | 2024-11-01 17:03 | DVHINCON2 ---
Date of service: Oct 31, [address] Serrano Reason for Consultation Acute respiratory failure History of Present Illness History Source: Patient Exam Limitations: No limitations HPI Patient is a 74-year old -[place] lady with a history of cardiomyopathy EF 20%, CVA, hypertension, morbid obesity and seizures who presented with increased swelling and shortness of breath. Was seen in the emergency room where he was found to have a mildly elevated troponin and he was admitted for further workup. Chest x-ray shows pulmonary congestion vs pneumonia and pulmonology was consulted to assist in management Home Meds Reported Medications Apixaban Base (ELIQUIS) 5 Mg Tab, 1 TAB PO BID 10/31/24 Past Medical History Cardiac: HTN, Cardiomyopathy Pulmonary: No pertinent Hx Central Nervous System: CVA, Seizure GI: No pertinent Hx Hemotology/Oncology: No pertinent Hx Hepatobiliary: No pertinent Hx Psychiatric: No pertinent Hx Musculoskeletal: No pertinent Hx Rheumotologic: No pertinent Hx Infectious Disease: No peritnent Hx ENT: No pertinent Hx Renal/: No pertinent Hx Endocrine: No pertinent Hx Dermatology: No pertinent Hx Past Surgical History: No pertinent Hx Family History: Cancer, CVA Patient Family History: Cerebrovascular accident (CVA) G8 MOTHER Colon cancer G8 FATHER Smoker: No Hx (Negative) Alocohol: None Drugs: None Lives with: With family Domestic Violence: Neg Review of Systems Constitutional: No symptom reported Ears, Nose, & Throat: No symptom reported Eyes: No symptom reported Pulmonary/Respiratory: Dyspnea Cardiovascular: Edema Gastrointestinal: No symptom reported Genitourinary: No symptom reported Musculoskeletal: No symptom reported Skin: No symptom reported Psychiatric: No symptom reported Endocrine: No symptom reported Hemotologic/Lymphatic: No symptom reported H&P Exam Vital Signs Vital Signs Date Time Temp Pulse Resp B/P (MAP) Pulse Ox O2 Delivery O2 Flow Rate FiO2 11/01/24 13:24 97.8 75 16 110/53 (72) 100 97.8 11/01/24 10:00 Nasal Cannula 2.0 11/01/24 10:00 28 General Appeara: Well developed, Well nourished, Normal Appearance Head Exam: Normal inspection Neck Exam: Normal inspection, Non-tender, Normal alignment Eye Exam: bilateral eye Normal inspection, bilateral eye PERRL, bilateral eye EOMI Ear Exam: bilateral ear Auricle normal, bilateral ear Canal normal, bilateral ear TM normal Nasal Exam: Normal inspection Mouth: Normal Inspection Pulmonary/Respiratory: Decreased breath sounds Cardiovascular/Chest: Normal inspection Peripheral Pulses: 4+ Radial (R), 4+ Radial (L), 4+ Brachial (R), 4+ Brachial (L) Abdominal Exam: Normal bowel sounds Labs/Xrays Labs Test 11/01/24 05:39 10/31/24 18:29 10/31/24 14:42 10/31/24 10:55 Range/Units White Blood Count 11.7 H 4.4-10.8 10^3/uL Red Blood Count 5.34 H 4.0-5.20 10^6/uL Hemoglobin 16.6 H 12.2-16.2 g/dL Hematocrit 49.7 H 36.0-46.0 % Mean Corpuscular Volume 93.1 80.0-100.0 fL Mean Corpuscular Hemoglobin 31.2 28.0-32.0 pg Mean Corpuscular Hemoglobin Concent 33.5 32.0-36.0 g/dL Red Cell Distribution Width 14.2 11.8-14.3 % Platelet Count 255 140-450 10^3/uL Mean Platelet Volume 10.9 H 6.9-10.8 fL Neutrophils (%) (Auto) 76.6 37.0-80.0 % Lymphocytes (%) (Auto) 16.1 10.0-50.0 % Monocytes (%) (Auto) 7.0 0.0-12.0 % Eosinophils (%) (Auto) 0.2 0.0-7.0 % Basophils (%) (Auto) 0.1 0.0-2.0 % Neutrophils # (Auto) 9.0 H 1.6-8.6 10 ^3/uL Lymphocytes # (Auto) 1.9 0.4-5.4 10 ^3/uL Monocytes # (Auto) 0.8 0-1.3 10 ^3/uL Eosinophils # (Auto) 0 0-0.8 10 ^3/uL Basophils # (Auto) 0 0-0.2 10 ^3/uL Nucleated Red Blood Cells 0.1 % Sodium Level 142 136-145 mmol/L Potassium Level 4.3 3.5-5.1 mmol/L Chloride Level 110 H 98-107 mmol/L Carbon Dioxide Level 17 L 20-31 mmol/L Anion Gap 15 5-15 Blood Urea Nitrogen 16 9-23 mg/dL Creatinine 1.18 #H 0.550-1.02 mg/dL Glomerular Filtration Rate Calc 48 >90 mL/min BUN/Creatinine Ratio 13.6 10.0-20.0 Serum Glucose 144 H 74-106 mg/dL Lactic Acid Level 2.6 *H 0.4-2.0 mmol/L Calcium Level 9.8 8.7-10.4 mg/dL Total Bilirubin 0.6 0.2-1.0 mg/dL Aspartate Amino Transferase (AST) 199 H 13-40 U/L Alanine Aminotransferase (ALT) 27 7-40 U/L Alkaline Phosphatase 125 H 46-116 U/L Troponin I High Sensitivity 02629 *H </=34 ng/L Total Protein 7.6 5.7-8.2 g/dL Albumin 4.3 3.2-4.8 g/dL Urine Color Yellow Yellow Urine Clarity Clear Clear Urine pH 5.5 5.0-9.0 Urine Specific [place] 1.014 1.001-1.035 Urine Protein Trace H Negative Urine Ketones Negative Negative Urine Blood Negative Negative /uL Urine Nitrite Negative Negative Urine Bilirubin Negative Negative Urine Urobilinogen Normal Negative mg/dL Urine Leukocyte Esterase Negative Negative /uL Urine Glucose Normal Normal mg/dL Magnesium Level 2.3 1.6-2.6 mg/dL Triglycerides Level 91 < 150 mg/dL Cholesterol Level 141 < 200 mg/dL LDL Cholesterol 90 < 100 mg/dL HDL Cholesterol 40 40-59 mg/dL Thyroid Stimulating Hormone (TSH) 0.02 L 0.55-4.78 uIU/mL Test 10/31/24 08:05 Range/Units D-Dimer, Quantitative 3.99 H 0.0-0.49 mg/L FEU Hemoglobin A1c 5.3 <5.7 % A1C B-Type Natriuretic Peptide 379.27 0-100 pg/mL Microbiology Date/Time Source Procedure Growth Status 10/31/24 14:14 Blood Blood Culture - Preliminary NO GROWTH AFTER 24 HOURS OF INCUBATION. Resulted Assessment/Plan Plan Impression Acute hypoxemic respiratory failure Pulmonary congestion Afib with RVR Pneumonia Patient seen and examined Events Low oxygen requirements On 2 liters nasal cannula Vital signs stable Labs and imaging reviewed Chest x-ray shows pulmonary congestion vs pneumonia Management Supplemental oxygen Titrate to maintain sats 90% or above Incentive spirometry Antibiotics Bronchodilators Monitor renal function Monitor electrolytes Supplement as needed Workup per cardiology DVT prophylaxis Plan discussed with: Patient FIDEL SANTOS MD Nov 01, 2024 17:03
--- NOTE | 2024-11-01 17:04 | DVHPN2 ---
Progress Note - Dictate Date Seen: Nov 01, 2024 Medical Necessity Reason Pt with a Central, PICC or Fol: No vital signs Vital Sign Date Time Temp Pulse Resp B/P (MAP) Pulse Ox O2 Delivery O2 Flow Rate FiO2 11/01/24 13:24 97.8 75 16 110/53 (72) 100 97.8 11/01/24 10:00 Nasal Cannula 2.0 11/01/24 10:00 28 Total Intake and Output 10/31/24 10/31/24 11/01/24 15:00 23:00 07:00 Intake Total 150 ml 700 ml 50 ml Output Total 100 ml Balance 150 ml 700 ml -50 ml medications Current Medications Medications Dose Ordered Sig/Mahad Route Start Time Stop Time Status Last Admin Dose Admin Sodium Chloride 1,000 ml @ 60 mls/hr [id number] IV 10/31/24 10:30 11/01/24 03:14 60 MLS/HR Ondansetron HCl 4 mg Q4HP PRN IV 10/31/24 10:30 Acetaminophen 650 mg Q6HP PRN PO 10/31/24 10:30 Nitroglycerin 0.4 mg Q5MINP PRN SL 10/31/24 10:30 Morphine Sulfate 2 mg Q30M PRN IV 10/31/24 10:30 Albuterol 2.5 mg Q6HR NEB 10/31/24 18:00 11/01/24 06:16 2.5 MG Ipratropium [place] 0.5 mg Q6HR NEB 10/31/24 18:00 11/01/24 06:16 0.5 MG Albuterol 2.5 mg Q2HPRN PRN NEB 10/31/24 12:45 10/31/24 22:06 2.5 MG Furosemide 40 mg BIDD IV 10/31/24 18:00 11/01/24 05:33 40 MG Vancomycin HCl 0 ml @ 0 mls/hr UD IV 10/31/24 15:00 Empaglifozin 10 mg DAILY PO 11/01/24 10:00 11/01/24 09:16 10 MG Valsartan 40 mg DAILY PO 11/01/24 10:00 11/01/24 09:15 40 MG Spironolactone 25 mg DAILY PO 11/01/24 10:00 11/01/24 09:15 25 MG Carvedilol 3.125 mg Q12HR PO 10/31/24 22:00 11/01/24 09:16 3.125 MG Aspirin 81 mg DAILY PO 11/01/24 10:00 11/01/24 09:13 81 MG Atorvastatin Calcium 40 mg HS PO 10/31/24 22:00 10/31/24 22:01 40 MG Levofloxacin/ Dextrose 100 ml @ 100 mls/hr DAILY IV 10/31/24 15:39 11/01/24 09:12 100 MLS/HR Vancomycin HCl 100 ml @ 100 mls/hr DAILY@1700 IV 11/01/24 17:00 laboratory and microbiology Laboratory Tests 11/01/24 05:39 Test 11/01/24 05:39 Range/Units Serum Glucose 144 H 74-106 mg/dL Assessment/Plan Impression Acute hypoxemic respiratory failure Pulmonary congestion Afib with RVR Pneumonia Patient seen and examined Events Low oxygen requirements On 2 liters nasal cannula No acute events Labs and imaging reviewed Chest x-ray shows pulmonary congestion vs pneumonia Management Supplemental oxygen Titrate to maintain sats 90% or above Incentive spirometry Continue antibiotics F/u cultures Bronchodilators Diurese Monitor renal function Monitor electrolytes Supplement as needed Workup per cardiology DVT prophylaxis Plan discussed with: Patient FIDEL SANTOS MD Nov 01, 2024 17:04
[2024-11-01] MEDS: VANCOMYCIN 750MG KIT 100 ML IV SCH (17:23)
[2024-11-02] VITALS (18 sets, daily range): BP systolic 95–117; BP diastolic 54–87; PULSE 57–94; RESP 15–20; TEMP 36.8; O2SAT 95–100
[2024-11-02 10:25] LABS: Free T3 2.87 pg/mL (2.3-4.2)
[2024-11-02 10:28] LABS: Free T4 (Free Thyroxine) 1.52 ng/dL (0.89-1.76)
--- NOTE | 2024-11-02 11:01 | DVHPN2 ---
Reviewed: Care Plan, H&P, Labs, Medications, Previous Orders, Radiology Changes from previous H/P or p: No Changes Respiratory: Shortness of breath Objective Vitals Vital Signs Date Time Temp Pulse Resp B/P (MAP) Pulse Ox O2 Delivery O2 Flow Rate FiO2 11/02/24 09:33 72 99/60 11/02/24 09:00 98.2 18 98 98.2 11/02/24 08:00 Nasal Cannula* 2 28 Intake/Output Intake and Output 11/02/24 07:00 Intake Total 2156.6 ml Output Total 1200 ml Balance 956.6 ml Intake Oral 1100 ml IV Total 1056.6 ml Output Urine Total 1200 ml Medications Current Medications Medications Dose Ordered Sig/Mahad Route Start Time Stop Time Status Last Admin Dose Admin Sodium Chloride 1,000 ml @ 60 mls/hr [id number] IV 10/31/24 10:30 11/02/24 01:42 60 MLS/HR Ondansetron HCl 4 mg Q4HP PRN IV 10/31/24 10:30 Acetaminophen 650 mg Q6HP PRN PO 10/31/24 10:30 Nitroglycerin 0.4 mg Q5MINP PRN SL 10/31/24 10:30 Morphine Sulfate 2 mg Q30M PRN IV 10/31/24 10:30 Albuterol 2.5 mg Q6HR NEB 10/31/24 18:00 11/02/24 06:05 2.5 MG Ipratropium [place] 0.5 mg Q6HR NEB 10/31/24 18:00 11/02/24 06:05 0.5 MG Albuterol 2.5 mg Q2HPRN PRN NEB 10/31/24 12:45 10/31/24 22:06 2.5 MG Furosemide 40 mg BIDD IV 10/31/24 18:00 11/02/24 05:37 40 MG Vancomycin HCl 0 ml @ 0 mls/hr UD IV 10/31/24 15:00 Empaglifozin 10 mg DAILY PO 11/01/24 10:00 11/02/24 09:32 10 MG Valsartan 40 mg DAILY PO 11/01/24 10:00 11/01/24 09:15 40 MG Spironolactone 25 mg DAILY PO 11/01/24 10:00 11/01/24 09:15 25 MG Carvedilol 3.125 mg Q12HR PO 10/31/24 22:00 11/01/24 21:51 3.125 MG Aspirin 81 mg DAILY PO 11/01/24 10:00 11/02/24 09:32 81 MG Atorvastatin Calcium 40 mg HS PO 10/31/24 22:00 11/01/24 21:50 40 MG Levofloxacin/ Dextrose 100 ml @ 100 mls/hr DAILY IV 10/31/24 15:39 11/02/24 09:28 100 MLS/HR Vancomycin HCl 100 ml @ 100 mls/hr DAILY@1700 IV 11/01/24 17:00 11/01/24 17:23 100 MLS/HR Laboratory Results Laboratory Tests 11/01/24 05:39 11/02/24 06:50 Urinalysis Test 10/31/24 14:42 Urine Color Yellow (Yellow) Urine Clarity Clear (Clear) Urine pH 5.5 (5.0-9.0) Urine Specific [place] 1.014 (1.001-1.035) Urine Protein Trace (Negative) H Urine Ketones Negative (Negative) Urine Blood Negative /uL (Negative) Urine Nitrite Negative (Negative) Urine Bilirubin Negative (Negative) Urine Urobilinogen Normal mg/dL (Negative) Urine Leukocyte Esterase Negative /uL (Negative) Urine Glucose Normal mg/dL (Normal) Microbiology Microbiology Date/Time Source Procedure Growth Status 10/31/24 14:14 Blood Blood Culture - Preliminary NO GROWTH AFTER 24 HOURS OF INCUBATION. Resulted Labs and/or images reviewed: Labs reviewed by me, Image(s) reviewed by me Assessment/Plan Assessment/Plan Non ST-Elevation myocardial infarction troponin of 23 k, treatment per ACS protocol, cardiology consult by Dr. 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
--- NOTE | 2024-11-02 11:10 | DVHDS2 ---
Discharge Summary Date of Admission Oct 31, 2024 at 10:25 Date of Discharge: Nov 02, 2024 Admitting Diagnosis Chest pain Wounds: None Labs/Diagnostic Data: Laboratory Results Test 11/02/24 06:50 11/01/24 05:39 10/31/24 18:29 10/31/24 14:42 Creatinine 0.95 mg/dL (0.550-1.02) Glomerular Filtration Rate Calc 63 mL/min (>90) White Blood Count 11.7 10^3/uL (4.4-10.8) Red Blood Count 5.34 10^6/uL (4.0-5.20) Hemoglobin 16.6 g/dL (12.2-16.2) Hematocrit 49.7 % (36.0-46.0) Mean Corpuscular Volume 93.1 fL (80.0-100.0) Mean Corpuscular Hemoglobin 31.2 pg (28.0-32.0) Mean Corpuscular Hemoglobin Concent 33.5 g/dL (32.0-36.0) Red Cell Distribution Width 14.2 % (11.8-14.3) Platelet Count 255 10^3/uL (140-450) Mean Platelet Volume 10.9 fL (6.9-10.8) Neutrophils (%) (Auto) 76.6 % (37.0-80.0) Lymphocytes (%) (Auto) 16.1 % (10.0-50.0) Monocytes (%) (Auto) 7.0 % (0.0-12.0) Eosinophils (%) (Auto) 0.2 % (0.0-7.0) Basophils (%) (Auto) 0.1 % (0.0-2.0) Neutrophils # (Auto) 9.0 10 ^3/uL (1.6-8.6) Lymphocytes # (Auto) 1.9 10 ^3/uL (0.4-5.4) Monocytes # (Auto) 0.8 10 ^3/uL (0-1.3) Eosinophils # (Auto) 0 10 ^3/uL (0-0.8) Basophils # (Auto) 0 10 ^3/uL (0-0.2) Nucleated Red Blood Cells 0.1 % Sodium Level 142 mmol/L (136-145) Potassium Level 4.3 mmol/L (3.5-5.1) Chloride Level 110 mmol/L (98-107) Carbon Dioxide Level 17 mmol/L (20-31) Anion Gap 15 (5-15) Blood Urea Nitrogen 16 mg/dL (9-23) BUN/Creatinine Ratio 13.6 (10.0-20.0) Serum Glucose 144 mg/dL (74-106) Lactic Acid Level 2.6 mmol/L (0.4-2.0) Calcium Level 9.8 mg/dL (8.7-10.4) Total Bilirubin 0.6 mg/dL (0.2-1.0) Aspartate Amino Transferase (AST) 199 U/L (13-40) Alanine Aminotransferase (ALT) 27 U/L (7-40) Alkaline Phosphatase 125 U/L (46-116) Troponin I High Sensitivity 14317 ng/L (</=34) Total Protein 7.6 g/dL (5.7-8.2) Albumin 4.3 g/dL (3.2-4.8) Free Thyroxine (T4) Calculated 1.52 ng/dL (0.89-1.76) Free Triiodothyronine (T3) pg/mL 2.87 pg/mL (2.3-4.2) Urine Color Yellow (Yellow) Urine Clarity Clear (Clear) Urine pH 5.5 (5.0-9.0) Urine Specific [place] 1.014 (1.001-1.035) Urine Protein Trace (Negative) Urine Ketones Negative (Negative) Urine Blood Negative /uL (Negative) Urine Nitrite Negative (Negative) Urine Bilirubin Negative (Negative) Urine Urobilinogen Normal mg/dL (Negative) Urine Leukocyte Esterase Negative /uL (Negative) Urine Glucose Normal mg/dL (Normal) Test 10/31/24 10:55 10/31/24 08:05 Magnesium Level 2.3 mg/dL (1.6-2.6) Triglycerides Level 91 mg/dL (< 150) Cholesterol Level 141 mg/dL (< 200) LDL Cholesterol 90 mg/dL (< 100) HDL Cholesterol 40 mg/dL (40-59) Thyroid Stimulating Hormone (TSH) 0.02 uIU/mL (0.55-4.78) D-Dimer, Quantitative 3.99 mg/L FEU (0.0-0.49) Hemoglobin A1c 5.3 % A1C (<5.7) B-Type Natriuretic Peptide 379.27 pg/mL (0-100) Other Laboratory Tests 11/02/24 06:50 11/01/24 05:39 Brief Hx & Hospital Course: 74-year-old female chronically bedridden secondary to multiple strokes history of seizures congestive heart failure chronic atrial fibrillation not on blood thinners because of previous history of vaginal bleeding came into the hospital for chest pain. Admitted. Troponin went up from [address] Serrano. Started on amiodarone drip for rate control for AFib and also Lovenox per protocol therapeutic dose. Patient has a left-sided hemiparesis secondary to previous strokes patient was diagnosed with a acute on chronic decompensated congestive heart failure class three placed on Lasix. General condition very poor. Prognosis very poor. Being transferred to [place] for further care Consults/Reason for consult Cardiology Dr. Serrano Operations or Procedures none Condition at Discharge: Poor Final Diagnosis/Problems List Non ST-Elevation myocardial infarction troponin of 23 k, treatment per ACS protocol, cardiology consult by Dr. 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 Seizure activity Bed-bound Morbid obesity Patient can not tolerate blood thinners per family secondary to vaginal bleeding Discharge Disposition: Acute Care Facility Discharge Instruct/Medications Diet: Cardiac 2g Na,low cholest Activity: Bed rest Follow Up/Referral: Follow up with the [place] [facility] Medications: see list Scheduled Apixaban Base (Eliquis), 1 TAB PO BID, (Reported) 49 (Time taken for discharge summary 49 mts) Discharge Statement: "Patient was advised to return to the ER or call 911 if any headaches, dizziness, shortness of breath, chest pain, abdominal pain, bleeding, fevers, or worsening of medical condition. Patient was counseled about treatment plan, medications, possible side effects, patientverbalized understanding. All questions were answered to the best of my ability. This discharge took greater then 30 minutes in planning, reviewing documentation, counseling the patient, and discussing with other team members." ASSESSMENT ASSESSMENT Hospital Course Not much meaningful recovery Assessment Non ST-Elevation myocardial infarction troponin of 23 k, treatment per ACS protocol, cardiology consult by Dr. 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
--- NOTE | 2024-11-02 12:35 | DVHPN2 ---
Progress Note - Dictate Date Seen: Nov 02, 2024 Medical Necessity Reason Pt with a Central, PICC or Fol: No vital signs Vital Sign Date Time Temp Pulse Resp B/P (MAP) Pulse Ox O2 Delivery O2 Flow Rate FiO2 11/02/24 11:46 85 16 100 11/02/24 11:40 Nasal Cannula 1.0 11/02/24 11:40 24 11/02/24 09:33 99/60 11/02/24 09:00 98.2 98.2 Total Intake and Output 11/01/24 11/01/24 11/02/24 15:00 23:00 07:00 Intake Total 100 ml 1356.6 ml 700 ml Output Total 500 ml 700 ml Balance 100 ml 856.6 ml 0 ml medications Current Medications Medications Dose Ordered Sig/Mahad Route Start Time Stop Time Status Last Admin Dose Admin Sodium Chloride 1,000 ml @ 60 mls/hr [id number] IV 10/31/24 10:30 11/02/24 01:42 60 MLS/HR Ondansetron HCl 4 mg Q4HP PRN IV 10/31/24 10:30 Acetaminophen 650 mg Q6HP PRN PO 10/31/24 10:30 Nitroglycerin 0.4 mg Q5MINP PRN SL 10/31/24 10:30 Morphine Sulfate 2 mg Q30M PRN IV 10/31/24 10:30 Albuterol 2.5 mg Q6HR NEB 10/31/24 18:00 11/02/24 11:48 2.5 MG Ipratropium [place] 0.5 mg Q6HR NEB 10/31/24 18:00 11/02/24 11:48 0.5 MG Albuterol 2.5 mg Q2HPRN PRN NEB 10/31/24 12:45 10/31/24 22:06 2.5 MG Furosemide 40 mg BIDD IV 10/31/24 18:00 11/02/24 05:37 40 MG Vancomycin HCl 0 ml @ 0 mls/hr UD IV 10/31/24 15:00 Empaglifozin 10 mg DAILY PO 11/01/24 10:00 11/02/24 09:32 10 MG Valsartan 40 mg DAILY PO 11/01/24 10:00 11/01/24 09:15 40 MG Spironolactone 25 mg DAILY PO 11/01/24 10:00 11/01/24 09:15 25 MG Carvedilol 3.125 mg Q12HR PO 10/31/24 22:00 11/01/24 21:51 3.125 MG Aspirin 81 mg DAILY PO 11/01/24 10:00 11/02/24 09:32 81 MG Atorvastatin Calcium 40 mg HS PO 10/31/24 22:00 11/01/24 21:50 40 MG Levofloxacin/ Dextrose 100 ml @ 100 mls/hr DAILY IV 10/31/24 15:39 11/02/24 09:28 100 MLS/HR Vancomycin HCl 100 ml @ 100 mls/hr DAILY@1700 IV 11/01/24 17:00 11/01/24 17:23 100 MLS/HR laboratory and microbiology Laboratory Tests 11/02/24 06:50 11/01/24 05:39 Test 11/01/24 05:39 Range/Units Serum Glucose 144 H 74-106 mg/dL Assessment/Plan Impression Acute hypoxemic respiratory failure Pulmonary congestion Afib with RVR Pneumonia Patient seen and examined Events Low oxygen requirements On 2 liters nasal cannula No acute events Labs and imaging reviewed Chest x-ray shows pulmonary congestion vs pneumonia Management Supplemental oxygen Titrate to maintain sats 90% or above Incentive spirometry Continue antibiotics F/u cultures Bronchodilators Diurese Monitor renal function Monitor electrolytes Supplement as needed Workup per cardiology DVT prophylaxis Plan discussed with: Patient FIDEL SANTOS MD Nov 02, 2024 12:35
--- NOTE | 2024-11-02 16:00 | DVH ---
NUCLEAR MEDICINE VENTILATION/PERFUSION LUNG SCAN. INDICATION: RULE OUT PE COMPARISON: None TECHNIQUE: Following intravenous demonstration of 6 millicuries of technetium 99m MAA, and inhalati on of 40 mCi of Tc 99m DTPA scintigrams were obtained in multiple projections of the lungs. FINDINGS: There is normal uptake of radionuclide on both the ventilation and perfusion portions of the examinat ion. No mismatched perfusion defects are demonstrated. Uptake is normally homogeneous. IMPRESSION: 1. Low probability for PE.
[2024-11-02] MEDS ORDERED: AMIODARONE HCL 200 MG TAB PO ONE (19:15)
[2024-11-02] MEDS: AMIODARONE HCL 200 MG TAB PO SCH (21:03)
== END 2024-11-02 21:07 | disposition short-term general hospital (02) | DRG 280 ==
LOC: EDUNIT# 06:31 → EDBD 06:31 → ER 06:31 → OVERFLOW 10:25 → TELE-EAST 18:57
PROVIDERS: ADMIT Family Medicine; ATTEND Family Medicine
PROC: 05HF33Z Insertion of Infusion Device into Left Cephalic Vein, Percutaneous Approach (ICD-10-PCS; principal; 2024-11-02)
PROC: B54NZZA Ultrasonography of Left Upper Extremity Veins, Guidance (ICD-10-PCS; 2024-11-02)
DX: I21.4 Non-ST elevation (NSTEMI) myocardial infarction (principal); I50.43 Acute on chronic combined systolic (congestive) and diastolic (congestive) heart failure; J96.01 Acute respiratory failure with hypoxia; J18.9 Pneumonia, unspecified organism; I69.354 Hemiplegia and hemiparesis following cerebral infarction affecting left non-dominant side; I48.19 Other persistent atrial fibrillation; I13.0 Hypertensive heart and chronic kidney disease with heart failure and stage 1 through stage 4 chronic kidney disease, or unspecified chronic kidney disease; Z68.42 Body mass index [BMI] 45.0-49.9, adult; E66.01 Morbid (severe) obesity due to excess calories; Z74.01 Bed confinement status; N93.9 Abnormal uterine and vaginal bleeding, unspecified; N18.9 Chronic kidney disease, unspecified; R56.9 Unspecified convulsions; Z88.0 Allergy status to penicillin; Z91.013 Allergy to seafood; Z79.01 Long term (current) use of anticoagulants; Z82.3 Family history of stroke; Z80.0 Family history of malignant neoplasm of digestive organs
CPT/HCPCS: 36415; 70450; 71045; 78582; 80048; 80053; 80061; 81003; 82565; 83036; 83605; 83735; 83880; 84439; 84443; 84481; 84484; 85025; 85379; 87040; 93005; 93306; 93970; 94640; 96361; 96365; 96367; 96372; 96375; 99291; 99292; G0378; J1956